=== PATIENT | male | born 1970 | race Caucasian/White ===

== ENCOUNTER 2020-08-16 11:17 | Inpatient (IN) | payer MEDICARE, MEDICAID, SELFPAY ==
[2020-08-16] VITALS (10 sets, daily range): BP systolic 112–170; BP diastolic 72–96; PULSE 60–78; RESP 12–24; TEMP 36.4–37.1; O2SAT 96–100; BMI 38.0; BMI 38.1; BMI 40.4; BMI 39.2
--- NOTE | ~2020-08-16 | XR_ITS ---
EXAMINATION: XR CHEST CLINICAL INFORMATION: Chest pain COMPARISON: None TECHNIQUE: Frontal view of the chest was obtained. FINDINGS: The lungs are well-expanded and clear of acute process. The heart size and pulmonary vascularity is normal. There is a solitary pacer electrodes in the right ventricle. No gross bony abnormality seen. XR/XR chest 1V IMPRESSION: Unremarkable chest exam.
--- NOTE | 2020-08-16 11:18 | ECG_ITS ---
Test Reason : CHEST PAIN Blood Pressure : / mmHG Vent. Rate : 064 BPM Atrial Rate : 064 BPM P-R Int : 188 ms QRS Dur : 084 ms QT Int : 344 ms P-R-T Axes : 012 057 122 degrees QTc Int : 354 ms Normal sinus rhythm Low voltage QRS Septal infarct , age undetermined Lateral infarct , age undetermined Abnormal ECG No previous ECGs available Referred By: Sang Burgess Electronically Signed By:MELISSA MARSHALL MD
--- NOTE | 2020-08-16 11:29 | ED.CHESTPAIN ---
HPI - Chest Pain General Chief Complaint: Chest Pain <Sang Burgess NP - Last Filed: 08/16/20 17:48> Stated Complaint: chest pain <Sang Burgess NP - Last Filed: 08/16/20 17:48> Time Seen by Provider: 08/16/20 11:29 <Sang Burgess NP - Last Filed: 08/16/20 17:48> Source: patient <Sang Burgess NP - Last Filed: 08/16/20 17:48> Mode of arrival: ambulatory <Sang Burgess NP - Last Filed: 08/16/20 17:48> Limitations: language barrier (Primarily Romanian-speaking) <Sang Burgess NP - Last Filed: 08/16/20 17:48> History of Present Illness HPI narrative: States he woke 730 this morning with chest pain <Sang Burgess NP - Last Filed: 08/16/20 17:48> MD complaint: chest pain <Sang Burgess NP - Last Filed: 08/16/20 17:48> Pertinent past history: coronary artery disease, 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 <Sang Burgess NP - Last Filed: 08/16/20 17:48> Onset (ago): hour(s) <Sang Burgess NP - Last Filed: 08/16/20 17:48> Timing of current episode: constant <Sang Burgess NP - Last Filed: 08/16/20 17:48> Prior episodes: Yes <Sang Burgess NP - Last Filed: 08/16/20 17:48> Onset: during rest <Sang Burgess NP - Last Filed: 08/16/20 17:48> Pain location: substernal <Sang Burgess NP - Last Filed: 08/16/20 17:48> Pain radiation: none <Sang Burgess NP - Last Filed: 08/16/20 17:48> Severity: moderate <Sang Burgess NP - Last Filed: 08/16/20 17:48> Quality: tightness <Sang Burgess NP - Last Filed: 08/16/20 17:48> Relieving factors: nothing <Sang Burgess NP - Last Filed: 08/16/20 17:48> Exacerbating factors: nothing <Sang Burgess NP - Last Filed: 08/16/20 17:48> Treatment prior to arrival: none <Sang Burgess NP - Last Filed: 08/16/20 17:48> Risk Factors Coronary artery disease risk factors: diabetes, hyperlipidemia and hypertension <Sang Burgess NP - Last Filed: 08/16/20 17:48> Related Data Home Medications: Home Medications Medication Instructions Recorded Confirmed aspirin 81 mg PO DAILY 08/16/20 08/16/20 buspirone 15 mg PO BID 08/16/20 08/16/20 carvedilol 25 mg PO BID 08/16/20 08/16/20 cyanocobalamin (vitamin B-12) 1,000 mcg SUBLINGUAL DAILY 08/16/20 08/16/20 digoxin 125 mcg PO DAILY 08/16/20 08/16/20 ergocalciferol (vitamin D2) 1,250 mcg PO MO@0900 08/16/20 08/16/20 ezetimibe 10 mg PO DAILY 08/16/20 08/16/20 furosemide 60 mg PO DAILY 08/16/20 08/16/20 pantoprazole 40 mg PO DAILY 08/16/20 08/16/20 rosuvastatin 40 mg PO DAILY 08/16/20 08/16/20 sacubitril-valsartan [Entresto] 1 tab PO BID 08/16/20 08/16/20 sertraline 50 mg PO DAILY 08/16/20 08/16/20 spironolactone 12.5 mg PO DAILY 08/16/20 08/16/20 zolpidem 10 mg PO BEDTIME PRN 08/16/20 08/16/20 <Sang Burgess NP - Last Filed: 08/16/20 17:48> Allergies/Adverse Reactions: Allergies Allergy/AdvReac Type Severity Reaction Status Date / Time hydromorphone [From DILAUDID] Allergy Mild PASSES OUT Verified 08/16/20 11:19 morphine [MORPHINE] Allergy Mild PASSES OUT Verified 08/16/20 11:19 <Sang Burgess NP - Last Filed: 08/16/20 17:48> Review of Systems Review of Systems: Constitutional: No Weight loss, No Fever, No Chills, No Night Sweats, No Fatigue, No Malaise ENT/Mouth: No Hearing loss, No Ear Pain, No Nasal Congestion, No Sinus Pain, No Hoarseness, No sore throat, No Rhinorrhea, No Swallowing Difficulty Eyes: No Eye Pain, No Swelling, No Redness, No Foreign Body, No Discharge, No Vision Changes Cardiovascular: + Chest Pain, No SOB, No Dyspnea on Exertion, No Orthopnea, No Edema, No Palpitations Respiratory: No Cough, No Sputum, No Wheezing, No Smoke Exposure, No Dyspnea Gastrointestinal: No Nausea, No Vomiting, No Diarrhea, No Constipation, No abdominal Pain, No Hematochezia, No Melena Genitourinary: no irregular bleeding, No Dysuria, No Urinary Frequency, No Hematuria, No Urinary Incontinence, No Urgency, No Flank Pain, No Urinary Flow Changes, No Hesitancy Musculoskeletal: No joint pain, No Myalgias, No Joint Swelling Skin: No Skin Lesions, No rash Neuro: No Weakness, No Numbness, No Paresthesias, No Loss of Consciousness, No Dizziness, No Headache Psych: No Anxiety/Panic, No Depression, No SI/HI/AH/VH, No Social Issues Heme/Lymph: No Bruising, No Bleeding,No Lymphadenopathy Endocrine: No Polyuria, No Polydipsia, No Temperature Intolerance <Sang Burgess NP - Last Filed: 08/16/20 17:48> Yes all other systems are reviewed and are negative <Sang Burgess NP - Last Filed: 08/16/20 17:48> [facility] Past Medical History [facility] Narrative: Records below from [facility] in-hospital Dr. Nick 1. Ischemic cardiomyopathy onset in the 30s, with ECC LVH EF 20% with pulmonary hypertension, with persistent chronic chest pain with history of numerous ER visits and stents, AICD 09, TP ox list with intrope 2016 now off list as class 1 fntn, no recent CHF decomp and BMI is too high. 2. MDD/anxiety with somatic features ER visits for chronic persistent chest pain has improved coping w aunt as occupational therapy assist 3. IGT/Dm2... 4. Chronic CPK elevation unclear etiology, not clearly related to dosing of lipid med neg rheum/ neuro workup 5. Chronic LBP and other symptoms it causes ED visits-suffocating sensation, dizziness 6. Chronic on off abdominal pain/nausea/and incidental abnormal LFT off... 7. CKD stage 3 This above documentation is in the chart please refer to full note <Sang Burgess NP - Last Filed: 08/16/20 17:48> Medical History: Medical History (Updated 08/16/20 @ 17:47 by Sang Burgess NP) Diabetes High cholesterol HTN (hypertension) <Sang Burgess NP - Last Filed: 08/16/20 17:48> Surgical History: Surgical History (Updated 08/16/20 @ 11:24 by Jennifer Magallon) Stented coronary artery <Sang Burgess NP - Last Filed: 08/16/20 17:48> Social History Social History: Social History Alcohol intake: never Smoking Status: Never smoker Use of substances other than those prescribed or required for medical reasons: No Advance Directives: No Advance Directives Information Provided: No <Sang Burgess NP - Last Filed: 08/16/20 17:48> Physical Exam Vital Signs: Vital Signs: Last Vital Signs Temp 97.8 F 08/16/20 16:52 Pulse 77 08/16/20 16:52 Resp 24 H 08/16/20 16:52 BP 164/96 H 08/16/20 16:52 Pulse Ox 100 08/16/20 16:52 Body Mass Index 40.4 Reviewed <Sang Burgess NP - Last Filed: 08/16/20 17:48> Vital Signs: Last Vital Signs Temp 97.8 F 08/16/20 16:52 Pulse 77 08/16/20 16:52 Resp 24 H 08/16/20 16:52 BP 164/96 H 08/16/20 16:52 Pulse Ox 100 08/16/20 16:52 Body Mass Index 40.4 <Sylvester Poole MD - Last Filed: 08/16/20 15:53> Const: General: cooperative and healthy appearing; No acute distress or intoxicated appearing <Sang Burgess NP - Last Filed: 08/16/20 17:48> Nutritional Appearance: average body habitus <Sang Burgess NP - Last Filed: 08/16/20 17:48> Orientation/consciousness: patient oriented x3 <Sang Burgess NP - Last Filed: 08/16/20 17:48> HENMT: Head: Yes normal to inspection <Sang Burgess NP - Last Filed: 08/16/20 17:48> Ears: hearing grossly normal bilaterally <[facility] Burgess, - Last Filed: 08/16/20 17:48> Eyes: General: appearance normal, both eyes and all related structures <[facility] Aditya, - Last Filed: 08/16/20 17:48> Visual Ahuja: normal visual ahuja by confrontation <[facility] Burgess - Last Filed: 08/16/20 17:48> Neck: Neck: Yes normal visual inspection, No positive Brudzinski's sign, No positive Kernig's sign and No tender <[facility], - Last Filed: 08/16/20 17:48> Thyroid: Thyroid normal <[facility], - Last Filed: 08/16/20 17:48> Chest: Chest palpation & inspection: normal inspection of the chest <[facility] Burgess, - Last Filed: 08/16/20 17:48> Resp: Effort & Inspection: normal respiratory effort <[facility] Burgess - Last Filed: 08/16/20 17:48> Auscultation: clear to auscultation bilaterally <[facility], - Last Filed: 08/16/20 17:48> Cardio: Jugular venous distension: no JVD <[facility] Burgess - Last Filed: 08/16/20 17:48> Rhythm: regular rhythm <[facility] Burgess - Last Filed: 08/16/20 17:48> Heart sounds: S1 normal heart sound present and S2 normal heart sound present <[facility] Burgess - Last Filed: 08/16/20 17:48> GI: Inspection: Yes normal to inspection <[facility], [employer]ING AND BEADING MACHINE OPERATOR - Last Filed: 08/16/20 17:48> Palpation (GI): Soft to palpation <[facility], - Last Filed: 08/16/20 17:48> Percussion: Yes normal to percussion <[facility], TURNING AND BEADING MACHINE OPERATOR - Last Filed: 08/16/20 17:48> Auscultation: normal bowel sounds <[facility] - Last Filed: 08/16/20 17:48> : General: Yes no CVA tenderness <Sang Burgess NP - Last Filed: 08/16/20 17:48> Back/Spine/Pelvis: Back: no CVA tenderness <Sang Burgess NP - Last Filed: 08/16/20 17:48> Skin: General skin exam: no rashes or lesions noted <Sang Burgess NP - Last Filed: 08/16/20 17:48> Neuro: General: patient oriented x3 <Sang Burgess ORTIZ - Last Filed: 08/16/20 17:48> Extrem: General: Yes normal to inspection <Sang Burgess NP - Last Filed: 08/16/20 17:48> Course Course Course Narrative: In review pleasant 50-year-old primarily Romanian-speaking male who reports roughly 5+ hours ago waking up at 07:30 with substernal chest pain that is sharp and achy he has states has had similar episodes in the past and admits to extensive cardiac history has had multiple MIs as initially in 2007 he is from the [facility] at that time he had mild dizziness and at that time he required multiple stents and subsequently has had 2 additional MIs most recently in 2016 requiring additional stents in addition to this he reports he has a imbedded defibrillator secondary to proximal ventricular tachycardia, history of hypercholesteremia, non insulin-dependent diabetes and currently not on any antidiabetic regiment, obesity and anxiety/depression. Most of his history was gathered from him as well as his significant other at bedside and he has phone chart access to his patient portal [facility] which I reviewed with him but there are no physician notes. Consented to requesting records. Subsequently has some difficulty receiving records but was able to receive a single note from cardiology Dr. Ncik in the meantime directly after my evaluation he reported that his pain was essentially almost resolved he was given a GI cocktail and he has been pain free. His initial troponin was 52 and his initial EKG showed findings consistent with prior myocardial injury but no acute ST segment changes subsequently had a 3 hour troponin done that showed positive delta at 459 and EKG showed no significant changes. In the meantime patient has been pain-free the entire time case was discussed with Cardiology and recommendation for admission here and start on anticoagulation therapy and will follow. Additionally labs showed CKD today his creatinine was 1.55/BUN 21 and in June his creatinine was 1.49 and BUN of 21 I had access to this information through his patient portal on his cellphone. <Sang Burgess NP - Last Filed: 08/16/20 17:48> I have discussed the case and management with the BRITTANY <Sylvester Poole MD - Last Filed: 08/16/20 15:53> Reevaluation(s) Reevaluation #1: 42-year-old male with apparently extensive cardiac history including multiple MIs in the past status post stent, CAD, diabetes, obesity, prox overtook her tachycardia has a defibrillator in place presenting with 5-1/2 hours of substernal chest pain. States is feeling like is almost gone EKG upon arrival with no acute ST segment elevation. Plan for labs, chest x-ray and close monitoring given his history. He is sinus rhythm at this time on bedside monitor. Patient consented for records from his doctor in [place]. <Sang Burgess NP - Last Filed: 08/16/20 17:48> Reevaluation #2: His initial troponin is 53 labs show elevated kidney function unsure if this is driven by the kidney function, chronic, early elevation at this time he is pain-free and will plan on repeating a 3 hour level to ensure that there is no delta and repeat EKG. Findings and plan reviewed with the patient with consultants intern. <Sang Burgess NP - Last Filed: 08/16/20 17:48> Consultations Consultation #1: Case discussed with attending <Sang Burgess NP - Last Filed: 08/16/20 17:48> Consultation #2: Case discussed with cardiology Dr. Denise recommendation for no transfer, plan for admit to the facility and further workup. <Sang Burgess NP - Last Filed: 08/16/20 17:48> Consultation #3: Case discussed with hospitalist for admission <Sang Burgess NP - Last Filed: 08/16/20 17:48> MDM - Chest Pain Medical Records Data Attestation: I reviewed the patient's medical records. <Sang Burgess NP - Last Filed: 08/16/20 17:48> Medical records narrative: Prior ED visit reviewed from 03/26/2018 who is here for upper respiratory symptoms. <Sang Burgess NP - Last Filed: 08/16/20 17:48> Lab Data Attestation: I reviewed the patient's lab results. <Sang Burgess NP - Last Filed: 08/16/20 17:48> Result diagrams: : 08/16/20 17:08 08/16/20 11:59 <Sang Burgess NP - Last Filed: 08/16/20 17:48> Labs: Lab Results 08/16/20 08/16/20 08/16/20 Range/Units 11:59 11:59 11:59 WBC 9.8 (4.8-10.8) X10*3/uL RBC 5.22 (4.60-5.80) X10*6/uL Hgb 14.9 (14.0-18.0) g/dl Hct 46.5 (42-52) % MCV 89.1 (80-98) fL MCH 28.5 (27.0-33.0) pg MCHC 32.0 (31.0-36.0) g/dl RDW 13.3 (11.0-16.0) % Plt Count 221 (160-400) X10*3/uL MPV 11.3 (9.4-12.4) fL Immature Gran % (Auto) 0.2 (0.0-0.4) % Neut % (Auto) 73.1 H (45-73) % Lymph % (Auto) 18.7 L (20-40) % Stephens % (Auto) 7.4 (2-11) % Eos % (Auto) 0.3 (0-4) % Baso % (Auto) 0.3 (0-2) % Lymph # (Auto) 1.8 (1.2-4.9) X10*3/uL Stephens # (Auto) 0.7 (0.1-1.2) X10*3/uL Eos # (Auto) 0.0 (0.0-0.4) X10*3/uL Baso # (Auto) 0.0 (0.0-0.2) X10*3/uL Abs Immat Gran (auto) 0.02 (0.00-0.03) X10*3/uL Absolute Neuts (auto) 7.2 (2.0-8.3) X10*3/uL Absolute Nucleated RBC 0.000 (0.0-0.012) X10*3/uL Nucleated RBC % (auto) 0.0 (0.0-0.2) /100WBC PT 12.9 (10.8-13.0) SEC INR 1.1 (0.9-1.1) APTT 31.2 (24.1-38.0) SEC PTT (Heparin Protocol) (53-77.9) SEC D-Dimer 217 NG/ML Sodium 139 (135-145) mmol/L Potassium 5.0 (3.3-5.1) mmol/L Chloride 103 (96-108) mmol/L Carbon Dioxide 29 (22-29) mmol/L Anion Gap 12 (12-20) BUN 21 H (9-16) mg/dL Creatinine 1.55 H (0.5-1.4) mg/dL Estim Creat Clear Calc 71.3 Estimated GFR 48 Random Glucose 125 H (60-115) mg/dL Calcium 9.7 (8.4-10.2) mg/dL Total Bilirubin 1.2 H (0.0-1.0) mg/dL AST 27 (5-37) U/L ALT 35 (0-40) U/L Alkaline Phosphatase 74 (39-117) U/L Troponin I High Sens (<3.5-35.0) ng/L B-Natriuretic Peptide (<100) pg/mL Total Protein 8.1 H (6.5-8.0) g/dL Albumin 4.3 (3.5-5.0) g/dL Urine Color Urine Appearance Urine pH (5.0-8.0) Ur Specific [place] (1.005-1.025) Urine Protein (NEG-TRACE) MG/DL Urine Glucose (UA) (NEG) MG/DL Urine Ketones (NEG) MG/DL Urine Blood (NEG) Urine Nitrite (NEG) Ur Leukocyte Esterase (NEG) Urine RBC (0) /HPF Urine WBC (0-4) /HPF Ur Squamous Epith Cells /LPF Urine Bacteria /LPF Urine Opiates Screen (Not Detect) Ur Barbiturates Screen (Not Detect) Ur Phencyclidine Scrn (Not Detect) Ur Amphetamines Screen (Not Detect) U Benzodiazepines Scrn (Not Detect) Urine Cocaine Screen (Not Detect) U Marijuana (THC) Screen (Not Detect) COVID-19 ([facility]) (Negative) COVID-19 Clin Com 08/16/20 08/16/20 08/16/20 Range/Units 11:59 11:59 11:59 WBC (4.8-10.8) X10*3/uL RBC (4.60-5.80) X10*6/uL Hgb (14.0-18.0) g/dl Hct (42-52) % MCV (80-98) fL MCH (27.0-33.0) pg MCHC (31.0-36.0) g/dl RDW (11.0-16.0) % Plt Count (160-400) X10*3/uL MPV (9.4-12.4) fL Immature Gran % (Auto) (0.0-0.4) % Neut % (Auto) (45-73) % Lymph % (Auto) (20-40) % Stephens % (Auto) (2-11) % Eos % (Auto) (0-4) % Baso % (Auto) (0-2) % Lymph # (Auto) (1.2-4.9) X10*3/uL Stephens # (Auto) (0.1-1.2) X10*3/uL Eos # (Auto) (0.0-0.4) X10*3/uL Baso # (Auto) (0.0-0.2) X10*3/uL Abs Immat Gran (auto) (0.00-0.03) X10*3/uL Absolute Neuts (auto) (2.0-8.3) X10*3/uL Absolute Nucleated RBC (0.0-0.012) X10*3/uL Nucleated RBC % (auto) (0.0-0.2) /100WBC PT (10.8-13.0) SEC INR (0.9-1.1) APTT (24.1-38.0) SEC PTT (Heparin Protocol) (53-77.9) SEC D-Dimer NG/ML Sodium (135-145) mmol/L Potassium (3.3-5.1) mmol/L Chloride (96-108) mmol/L Carbon Dioxide (22-29) mmol/L Anion Gap (12-20) BUN (9-16) mg/dL Creatinine (0.5-1.4) mg/dL Estim Creat Clear Calc Estimated GFR Random Glucose (60-115) mg/dL Calcium (8.4-10.2) mg/dL Total Bilirubin (0.0-1.0) mg/dL AST (5-37) U/L ALT (0-40) U/L Alkaline Phosphatase (39-117) U/L Troponin I High Sens 53.2 H (<3.5-35.0) ng/L B-Natriuretic Peptide 87 (<100) pg/mL Total Protein (6.5-8.0) g/dL Albumin (3.5-5.0) g/dL Urine Color Urine Appearance Urine pH (5.0-8.0) Ur Specific [place] (1.005-1.025) Urine Protein (NEG-TRACE) MG/DL Urine Glucose (UA) (NEG) MG/DL Urine Ketones (NEG) MG/DL Urine Blood (NEG) Urine Nitrite (NEG) Ur Leukocyte Esterase (NEG) Urine RBC (0) /HPF Urine WBC (0-4) /HPF Ur Squamous Epith Cells /LPF Urine Bacteria /LPF Urine Opiates Screen (Not Detect) Ur Barbiturates Screen (Not Detect) Ur Phencyclidine Scrn (Not Detect) Ur Amphetamines Screen (Not Detect) U Benzodiazepines Scrn (Not Detect) Urine Cocaine Screen (Not Detect) U Marijuana (THC) Screen (Not Detect) COVID-19 ([facility]) Negative (Negative) COVID-19 Clin Com See Note 08/16/20 08/16/20 08/16/20 Range/Units 13:10 13:10 14:56 WBC (4.8-10.8) X10*3/uL RBC (4.60-5.80) X10*6/uL Hgb (14.0-18.0) g/dl Hct (42-52) % MCV (80-98) fL MCH (27.0-33.0) pg MCHC (31.0-36.0) g/dl RDW (11.0-16.0) % Plt Count (160-400) X10*3/uL MPV (9.4-12.4) fL Immature Gran % (Auto) (0.0-0.4) % Neut % (Auto) (45-73) % Lymph % (Auto) (20-40) % Stephens % (Auto) (2-11) % Eos % (Auto) (0-4) % Baso % (Auto) (0-2) % Lymph # (Auto) (1.2-4.9) X10*3/uL Stephens # (Auto) (0.1-1.2) X10*3/uL Eos # (Auto) (0.0-0.4) X10*3/uL Baso # (Auto) (0.0-0.2) X10*3/uL Abs Immat Gran (auto) (0.00-0.03) X10*3/uL Absolute Neuts (auto) (2.0-8.3) X10*3/uL Absolute Nucleated RBC (0.0-0.012) X10*3/uL Nucleated RBC % (auto) (0.0-0.2) /100WBC PT (10.8-13.0) SEC INR (0.9-1.1) APTT (24.1-38.0) SEC PTT (Heparin Protocol) (53-77.9) SEC D-Dimer NG/ML Sodium (135-145) mmol/L Potassium (3.3-5.1) mmol/L Chloride (96-108) mmol/L Carbon Dioxide (22-29) mmol/L Anion Gap (12-20) BUN (9-16) mg/dL Creatinine (0.5-1.4) mg/dL Estim Creat Clear Calc Estimated GFR Random Glucose (60-115) mg/dL Calcium (8.4-10.2) mg/dL Total Bilirubin (0.0-1.0) mg/dL AST (5-37) U/L ALT (0-40) U/L Alkaline Phosphatase (39-117) U/L Troponin I High Sens 459.1 H D (<3.5-35.0) ng/L B-Natriuretic Peptide (<100) pg/mL Total Protein (6.5-8.0) g/dL Albumin (3.5-5.0) g/dL Urine Color YELLOW Urine Appearance CLEAR Urine pH 7.0 (5.0-8.0) Ur Specific [place] 1.020 (1.005-1.025) Urine Protein NEG (NEG-TRACE) MG/DL Urine Glucose (UA) NEG (NEG) MG/DL Urine Ketones NEG (NEG) MG/DL Urine Blood TRACE (NEG) Urine Nitrite NEG (NEG) Ur Leukocyte Esterase NEG (NEG) Urine RBC 1-4 (0) /HPF Urine WBC 0 (0-4) /HPF Ur Squamous Epith Cells NONE /LPF Urine Bacteria NONE /LPF Urine Opiates Screen Not Detected (Not Detect) Ur Barbiturates Screen Not Detected (Not Detect) Ur Phencyclidine Scrn Not Detected (Not Detect) Ur Amphetamines Screen Not Detected (Not Detect) U Benzodiazepines Scrn Not Detected (Not Detect) Urine Cocaine Screen Not Detected (Not Detect) U Marijuana (THC) Screen Not Detected (Not Detect) COVID-19 ([facility]) (Negative) COVID-19 Clin Com 08/16/20 08/16/20 08/16/20 Range/Units 17:08 17:08 17:08 WBC 9.9 (4.8-10.8) X10*3/uL RBC 5.39 (4.60-5.80) X10*6/uL Hgb 15.3 (14.0-18.0) g/dl Hct 47.7 (42-52) % MCV 88.5 (80-98) fL MCH 28.4 (27.0-33.0) pg MCHC 32.1 (31.0-36.0) g/dl RDW 13.3 (11.0-16.0) % Plt Count 216 (160-400) X10*3/uL MPV 11.1 (9.4-12.4) fL Immature Gran % (Auto) (0.0-0.4) % Neut % (Auto) (45-73) % Lymph % (Auto) (20-40) % Stephens % (Auto) (2-11) % Eos % (Auto) (0-4) % Baso % (Auto) (0-2) % Lymph # (Auto) (1.2-4.9) X10*3/uL Stephens # (Auto) (0.1-1.2) X10*3/uL Eos # (Auto) (0.0-0.4) X10*3/uL Baso # (Auto) (0.0-0.2) X10*3/uL Abs Immat Gran (auto) (0.00-0.03) X10*3/uL Absolute Neuts (auto) (2.0-8.3) X10*3/uL Absolute Nucleated RBC 0.000 (0.0-0.012) X10*3/uL Nucleated RBC % (auto) 0.0 (0.0-0.2) /100WBC PT 13.6 H (10.8-13.0) SEC INR 1.1 (0.9-1.1) APTT (24.1-38.0) SEC PTT (Heparin Protocol) 144.5 H* (53-77.9) SEC D-Dimer NG/ML Sodium (135-145) mmol/L Potassium (3.3-5.1) mmol/L Chloride (96-108) mmol/L Carbon Dioxide (22-29) mmol/L Anion Gap (12-20) BUN (9-16) mg/dL Creatinine (0.5-1.4) mg/dL Estim Creat Clear Calc Estimated GFR Random Glucose (60-115) mg/dL Calcium (8.4-10.2) mg/dL Total Bilirubin (0.0-1.0) mg/dL AST (5-37) U/L ALT (0-40) U/L Alkaline Phosphatase (39-117) U/L Troponin I High Sens 786.5 H D (<3.5-35.0) ng/L B-Natriuretic Peptide (<100) pg/mL Total Protein (6.5-8.0) g/dL Albumin (3.5-5.0) g/dL Urine Color Urine Appearance Urine pH (5.0-8.0) Ur Specific [place] (1.005-1.025) Urine Protein (NEG-TRACE) MG/DL Urine Glucose (UA) (NEG) MG/DL Urine Ketones (NEG) MG/DL Urine Blood (NEG) Urine Nitrite (NEG) Ur Leukocyte Esterase (NEG) Urine RBC (0) /HPF Urine WBC (0-4) /HPF Ur Squamous Epith Cells /LPF Urine Bacteria /LPF Urine Opiates Screen (Not Detect) Ur Barbiturates Screen (Not Detect) Ur Phencyclidine Scrn (Not Detect) Ur Amphetamines Screen (Not Detect) U Benzodiazepines Scrn (Not Detect) Urine Cocaine Screen (Not Detect) U Marijuana (THC) Screen (Not Detect) COVID-19 ([facility]) (Negative) COVID-19 Clin Com <Sang Burgess NP - Last Filed: 08/16/20 17:48> Lab Results 08/16/20 08/16/20 08/16/20 Range/Units 11:59 11:59 11:59 WBC 9.8 (4.8-10.8) X10*3/uL RBC 5.22 (4.60-5.80) X10*6/uL Hgb 14.9 (14.0-18.0) g/dl Hct 46.5 (42-52) % MCV 89.1 (80-98) fL MCH 28.5 (27.0-33.0) pg MCHC 32.0 (31.0-36.0) g/dl RDW 13.3 (11.0-16.0) % Plt Count 221 (160-400) X10*3/uL MPV 11.3 (9.4-12.4) fL Immature Gran % (Auto) 0.2 (0.0-0.4) % Neut % (Auto) 73.1 H (45-73) % Lymph % (Auto) 18.7 L (20-40) % Stephens % (Auto) 7.4 (2-11) % Eos % (Auto) 0.3 (0-4) % Baso % (Auto) 0.3 (0-2) % Lymph # (Auto) 1.8 (1.2-4.9) X10*3/uL Stephens # (Auto) 0.7 (0.1-1.2) X10*3/uL Eos # (Auto) 0.0 (0.0-0.4) X10*3/uL Baso # (Auto) 0.0 (0.0-0.2) X10*3/uL Abs Immat Gran (auto) 0.02 (0.00-0.03) X10*3/uL Absolute Neuts (auto) 7.2 (2.0-8.3) X10*3/uL Absolute Nucleated RBC 0.000 (0.0-0.012) X10*3/uL Nucleated RBC % (auto) 0.0 (0.0-0.2) /100WBC PT 12.9 (10.8-13.0) SEC INR 1.1 (0.9-1.1) APTT 31.2 (24.1-38.0) SEC PTT (Heparin Protocol) (53-77.9) SEC D-Dimer 217 NG/ML Sodium 139 (135-145) mmol/L Potassium 5.0 (3.3-5.1) mmol/L Chloride 103 (96-108) mmol/L Carbon Dioxide 29 (22-29) mmol/L Anion Gap 12 (12-20) BUN 21 H (9-16) mg/dL Creatinine 1.55 H (0.5-1.4) mg/dL Estim Creat Clear Calc 71.3 Estimated GFR 48 Random Glucose 125 H (60-115) mg/dL Calcium 9.7 (8.4-10.2) mg/dL Total Bilirubin 1.2 H (0.0-1.0) mg/dL AST 27 (5-37) U/L ALT 35 (0-40) U/L Alkaline Phosphatase 74 (39-117) U/L Troponin I High Sens (<3.5-35.0) ng/L B-Natriuretic Peptide (<100) pg/mL Total Protein 8.1 H (6.5-8.0) g/dL Albumin 4.3 (3.5-5.0) g/dL Urine Color Urine Appearance Urine pH (5.0-8.0) Ur Specific [place] (1.005-1.025) Urine Protein (NEG-TRACE) MG/DL Urine Glucose (UA) (NEG) MG/DL Urine Ketones (NEG) MG/DL Urine Blood (NEG) Urine Nitrite (NEG) Ur Leukocyte Esterase (NEG) Urine RBC (0) /HPF Urine WBC (0-4) /HPF Ur Squamous Epith Cells /LPF Urine Bacteria /LPF Urine Opiates Screen (Not Detect) Ur Barbiturates Screen (Not Detect) Ur Phencyclidine Scrn (Not Detect) Ur Amphetamines Screen (Not Detect) U Benzodiazepines Scrn (Not Detect) Urine Cocaine Screen (Not Detect) U Marijuana (THC) Screen (Not Detect) COVID-19 ([facility]) (Negative) COVID-19 Clin Com 03/16/21 03/16/21 03/16/21 Range/Units 11:59 11:59 11:59 WBC (4.8-10.8) X10*3/uL RBC (4.60-5.80) X10*6/uL Hgb (14.0-18.0) g/dl Hct (42-52) % MCV (80-98) fL MCH (27.0-33.0) pg MCHC (31.0-36.0) g/dl RDW (11.0-16.0) % Plt Count (160-400) X10*3/uL MPV (9.4-12.4) fL Immature Gran % (Auto) (0.0-0.4) % Neut % (Auto) (45-73) % Lymph % (Auto) (20-40) % Stephens % (Auto) (2-11) % Eos % (Auto) (0-4) % Baso % (Auto) (0-2) % Lymph # (Auto) (1.2-4.9) X10*3/uL Stephens # (Auto) (0.1-1.2) X10*3/uL Eos # (Auto) (0.0-0.4) X10*3/uL Baso # (Auto) (0.0-0.2) X10*3/uL Abs Immat Gran (auto) (0.00-0.03) X10*3/uL Absolute Neuts (auto) (2.0-8.3) X10*3/uL Absolute Nucleated RBC (0.0-0.012) X10*3/uL Nucleated RBC % (auto) (0.0-0.2) /100WBC PT (10.8-13.0) SEC INR (0.9-1.1) APTT (24.1-38.0) SEC PTT (Heparin Protocol) (53-77.9) SEC D-Dimer NG/ML Sodium (135-145) mmol/L Potassium (3.3-5.1) mmol/L Chloride (96-108) mmol/L Carbon Dioxide (22-29) mmol/L Anion Gap (12-20) BUN (9-16) mg/dL Creatinine (0.5-1.4) mg/dL Estim Creat Clear Calc Estimated GFR Random Glucose (60-115) mg/dL Calcium (8.4-10.2) mg/dL Total Bilirubin (0.0-1.0) mg/dL AST (5-37) U/L ALT (0-40) U/L Alkaline Phosphatase (39-117) U/L Troponin I High Sens 53.2 H (<3.5-35.0) ng/L B-Natriuretic Peptide 87 (<100) pg/mL Total Protein (6.5-8.0) g/dL Albumin (3.5-5.0) g/dL Urine Color Urine Appearance Urine pH (5.0-8.0) Ur Specific [place] (1.005-1.025) Urine Protein (NEG-TRACE) MG/DL Urine Glucose (UA) (NEG) MG/DL Urine Ketones (NEG) MG/DL Urine Blood (NEG) Urine Nitrite (NEG) Ur Leukocyte Esterase (NEG) Urine RBC (0) /HPF Urine WBC (0-4) /HPF Ur Squamous Epith Cells /LPF Urine Bacteria /LPF Urine Opiates Screen (Not Detect) Ur Barbiturates Screen (Not Detect) Ur Phencyclidine Scrn (Not Detect) Ur Amphetamines Screen (Not Detect) U Benzodiazepines Scrn (Not Detect) Urine Cocaine Screen (Not Detect) U Marijuana (THC) Screen (Not Detect) COVID-19 ([facility]) Negative (Negative) COVID-19 Clin Com See Note 08/16/20 08/16/20 08/16/20 Range/Units 13:10 13:10 14:56 WBC (4.8-10.8) X10*3/uL RBC (4.60-5.80) X10*6/uL Hgb (14.0-18.0) g/dl Hct (42-52) % MCV (80-98) fL MCH (27.0-33.0) pg MCHC (31.0-36.0) g/dl RDW (11.0-16.0) % Plt Count (160-400) X10*3/uL MPV (9.4-12.4) fL Immature Gran % (Auto) (0.0-0.4) % Neut % (Auto) (45-73) % Lymph % (Auto) (20-40) % Stephens % (Auto) (2-11) % Eos % (Auto) (0-4) % Baso % (Auto) (0-2) % Lymph # (Auto) (1.2-4.9) X10*3/uL Stephens # (Auto) (0.1-1.2) X10*3/uL Eos # (Auto) (0.0-0.4) X10*3/uL Baso # (Auto) (0.0-0.2) X10*3/uL Abs Immat Gran (auto) (0.00-0.03) X10*3/uL Absolute Neuts (auto) (2.0-8.3) X10*3/uL Absolute Nucleated RBC (0.0-0.012) X10*3/uL Nucleated RBC % (auto) (0.0-0.2) /100WBC PT (10.8-13.0) SEC INR (0.9-1.1) APTT (24.1-38.0) SEC PTT (Heparin Protocol) (53-77.9) SEC D-Dimer NG/ML Sodium (135-145) mmol/L Potassium (3.3-5.1) mmol/L Chloride (96-108) mmol/L Carbon Dioxide (22-29) mmol/L Anion Gap (12-20) BUN (9-16) mg/dL Creatinine (0.5-1.4) mg/dL Estim Creat Clear Calc Estimated GFR Random Glucose (60-115) mg/dL Calcium (8.4-10.2) mg/dL Total Bilirubin (0.0-1.0) mg/dL AST (5-37) U/L ALT (0-40) U/L Alkaline Phosphatase (39-117) U/L Troponin I High Sens 459.1 H D (<3.5-35.0) ng/L B-Natriuretic Peptide (<100) pg/mL Total Protein (6.5-8.0) g/dL Albumin (3.5-5.0) g/dL Urine Color YELLOW Urine Appearance CLEAR Urine pH 7.0 (5.0-8.0) Ur Specific [place] 1.020 (1.005-1.025) Urine Protein NEG (NEG-TRACE) MG/DL Urine Glucose (UA) NEG (NEG) MG/DL Urine Ketones NEG (NEG) MG/DL Urine Blood TRACE (NEG) Urine Nitrite NEG (NEG) Ur Leukocyte Esterase NEG (NEG) Urine RBC 1-4 (0) /HPF Urine WBC 0 (0-4) /HPF Ur Squamous Epith Cells NONE /LPF Urine Bacteria NONE /LPF Urine Opiates Screen Not Detected (Not Detect) Ur Barbiturates Screen Not Detected (Not Detect) Ur Phencyclidine Scrn Not Detected (Not Detect) Ur Amphetamines Screen Not Detected (Not Detect) U Benzodiazepines Scrn Not Detected (Not Detect) Urine Cocaine Screen Not Detected (Not Detect) U Marijuana (THC) Screen Not Detected (Not Detect) COVID-19 ([facility]) (Negative) COVID-19 Clin Com 08/16/20 08/16/20 08/16/20 Range/Units 17:08 17:08 17:08 WBC 9.9 (4.8-10.8) X10*3/uL RBC 5.39 (4.60-5.80) X10*6/uL Hgb 15.3 (14.0-18.0) g/dl Hct 47.7 (42-52) % MCV 88.5 (80-98) fL MCH 28.4 (27.0-33.0) pg MCHC 32.1 (31.0-36.0) g/dl RDW 13.3 (11.0-16.0) % Plt Count 216 (160-400) X10*3/uL MPV 11.1 (9.4-12.4) fL Immature Gran % (Auto) (0.0-0.4) % Neut % (Auto) (45-73) % Lymph % (Auto) (20-40) % Stephens % (Auto) (2-11) % Eos % (Auto) (0-4) % Baso % (Auto) (0-2) % Lymph # (Auto) (1.2-4.9) X10*3/uL Stephens # (Auto) (0.1-1.2) X10*3/uL Eos # (Auto) (0.0-0.4) X10*3/uL Baso # (Auto) (0.0-0.2) X10*3/uL Abs Immat Gran (auto) (0.00-0.03) X10*3/uL Absolute Neuts (auto) (2.0-8.3) X10*3/uL Absolute Nucleated RBC 0.000 (0.0-0.012) X10*3/uL Nucleated RBC % (auto) 0.0 (0.0-0.2) /100WBC PT 13.6 H (10.8-13.0) SEC INR 1.1 (0.9-1.1) APTT (24.1-38.0) SEC PTT (Heparin Protocol) 144.5 H* (53-77.9) SEC D-Dimer NG/ML Sodium (135-145) mmol/L Potassium (3.3-5.1) mmol/L Chloride (96-108) mmol/L Carbon Dioxide (22-29) mmol/L Anion Gap (12-20) BUN (9-16) mg/dL Creatinine (0.5-1.4) mg/dL Estim Creat Clear Calc Estimated GFR Random Glucose (60-115) mg/dL Calcium (8.4-10.2) mg/dL Total Bilirubin (0.0-1.0) mg/dL AST (5-37) U/L ALT (0-40) U/L Alkaline Phosphatase (39-117) U/L Troponin I High Sens 786.5 H D (<3.5-35.0) ng/L B-Natriuretic Peptide (<100) pg/mL Total Protein (6.5-8.0) g/dL Albumin (3.5-5.0) g/dL Urine Color Urine Appearance Urine pH (5.0-8.0) Ur Specific [place] (1.005-1.025) Urine Protein (NEG-TRACE) MG/DL Urine Glucose (UA) (NEG) MG/DL Urine Ketones (NEG) MG/DL Urine Blood (NEG) Urine Nitrite (NEG) Ur Leukocyte Esterase (NEG) Urine RBC (0) /HPF Urine WBC (0-4) /HPF Ur Squamous Epith Cells /LPF Urine Bacteria /LPF Urine Opiates Screen (Not Detect) Ur Barbiturates Screen (Not Detect) Ur Phencyclidine Scrn (Not Detect) Ur Amphetamines Screen (Not Detect) U Benzodiazepines Scrn (Not Detect) Urine Cocaine Screen (Not Detect) U Marijuana (THC) Screen (Not Detect) COVID-19 ([facility]) (Negative) COVID-19 Clin Com <Sylvester Poole MD - Last Filed: 08/16/20 15:53> Imaging Data Chest x-ray: Radiologist's impression: [facility] [facility] [place], [place] [address]HNzu ReportSigned Patient: Karel EdmondsMR#: [id number]: [id number]:[id number]/Sex: 50 / MADM Date: 08/16/20Loc: HO.EDAttending Dr: Ordering Physician: Sang Burgess NP Date of Service: 08/16/20 Procedure(s): XR chest 1V Accession Number(s): [id number] cc: Sang Burgess NP~ EXAMINATION: XR CHEST CLINICAL INFORMATION: Chest pain COMPARISON: None TECHNIQUE: Frontal view of the chest was obtained. FINDINGS: The lungs are well-expanded and clear of acute process. The heart size and pulmonary vascularity is normal. There is a solitary pacer electrodes in the right ventricle. No gross bony abnormality seen. XR/XR chest 1V IMPRESSION: Unremarkable chest exam. Dictated By:TERRY FERNANDEZ MDSigned By:<Electronically signed by TERRY FERNANDEZ MD in [place]>08/16/20 1232 DD/ 1131TD/TT: On Site Services Specialist: DIXIE <Sang Burgess NP - Last Filed: 08/16/20 17:48> ECG Data ECG #1: Interpretation: Normal sinus rhythm Rate 64 Low voltage QRS Septal infarct , age undetermined Lateral infarct , age undetermined Abnormal ECG No previous ECGs available <Sang Burgess NP - Last Filed: 08/16/20 17:48> ECG #2: Interpretation: Normal sinus rhythm Septal/lateral infract similar to previous Previous EKG had some artifact on it but slightly more visible T-wave inversion in the inferior/lateral leads. <Sang Burgess NP - Last Filed: 08/16/20 17:48> Discharge Plan Discharge Clinical Impression: Non-ST elevated myocardial infarction <Sang Burgess NP - Last Filed: 08/16/20 17:48> Patient Disposition: Admitted As Inpatient <Sang Burgess NP - Last Filed: 08/16/20 17:48>
--- NOTE | 2020-08-16 11:31 | ECG_ITS ---
Test Reason : REPEAT Blood Pressure : / mmHG Vent. Rate : 066 BPM Atrial Rate : 066 BPM P-R Int : 198 ms QRS Dur : 086 ms QT Int : 350 ms P-R-T Axes : 024 077 -26 degrees QTc Int : 366 ms Normal sinus rhythm Low voltage QRS Septal infarct (cited on or before 16-AUG-2020) Lateral infarct (cited on or before 16-AUG-2020) Nonspecific ST and T wave abnormality Abnormal ECG When compared with ECG of 16-AUG-2020 11:23, Non-specific change in ST segment in Inferior leads Non-specific change in ST segment in Lateral leads Nonspecific T wave abnormality, worse in Inferior leads Referred By: Sang Burgess Electronically Signed By:MELISSA MARSHALL MD
[2020-08-16 12:12] LABS: MANUAL DIFF FLAG NO
[2020-08-16 12:15] LABS: Basophils Percent Auto 0.3 % (0-2); Eosinophils Percent Auto 0.3 % (0-4); Hematocrit 46.5 % (42-52); Hemoglobin 14.9 g/dl (14.0-18.0); Imm Gran Abs Auto 0.02 X10*3/uL (0.00-0.03); Imm Gran Pct Auto 0.2 % (0.0-0.4); Lymphocytes Absolute Auto 1.8 X10*3/uL (1.2-4.9); Lymphocytes Percent Auto 18.7 % (20-40); Mean Corpuscular Hemoglobin 28.5 pg (27.0-33.0); Mean Corpuscular Volume 89.1 fL (80-98); Mean Platelet Volume 11.3 fL (9.4-12.4); Monocytes Absolute Auto 0.7 X10*3/uL (0.1-1.2); Monocytes Percent Auto 7.4 % (2-11); Neutrophils Absolute Auto 7.2 X10*3/uL (2.0-8.3); Neutrophils Percent Auto 73.1 % (45-73); Platelet Count 221 X10*3/uL (160-400); Red Blood Count 5.22 X10*6/uL (4.60-5.80); Red Cell Distribution Width 13.3 % (11.0-16.0); White Blood Count 9.8 X10*3/uL (4.8-10.8)
[2020-08-16 12:20] LABS: INTERNATIONAL NORM RATIO 1.1 (0.9-1.1); Prothrombin Time 12.9 SEC (10.8-13.0)
[2020-08-16 12:23] LABS: D Dimer 217 NG/ML; Partial Thromboplastin Time 31.2 SEC (24.1-38.0)
[2020-08-16 12:35] LABS: Alanine Aminotransferase 35 U/L (0-40); Albumin Level 4.3 g/dL (3.5-5.0); Alkaline Phosphatase 74 U/L (39-117); Anion Gap 12 (12-20); Aspartate Amino Transferase 27 U/L (5-37); Bilirubin Total 1.2 mg/dL (0.0-1.0); Blood Urea Nitrogen 21 mg/dL (9-16); Calcium 9.7 mg/dL (8.4-10.2); Carbon Dioxide 29 mmol/L (22-29); Chloride 103 mmol/L (96-108); Creatinine Clr Calc Pharmacy 71.3; Estimated Glomerular Filt Rate 48; Glucose Random 125 mg/dL (60-115); Sodium 139 mmol/L (135-145); Total Protein 8.1 g/dL (6.5-8.0)
[2020-08-16 12:37] LABS: COVID-19 Test Negative (Negative); IDNOW Serial# 9DD0AD1C
[2020-08-16 12:40] LABS: B Type Natriuretic Peptide 87 pg/mL (<100)
[2020-08-16 12:44] LABS: Troponin-I High Sensitivity 53.2 ng/L (<3.5-35.0)
[2020-08-16] MEDS: Magnesium Hydrox/Alum Hydrox 30 ML ORAL.SUSP PO (12:51)
[2020-08-16] MEDS: Lidocaine HCl Viscous 2 % 15 ML SOLUTION 10 ML MUCOUS MEM (12:52)
--- NOTE | 2020-08-16 13:15 | PC.NURSE ---
Pt reports 0/10 cp after medication. Pt resting in bed, skin w/p/d, rr even and unlabored.
[2020-08-16 13:50] LABS: Glucose Urine UA NEG (NEG); Leukocyte Esterase Urine NEG (NEG); Nitrite Urine NEG (NEG); Urine Blood TRACE (NEG); Urine Ketones NEG (NEG); Urine Protein NEG (NEG-TRACE)
[2020-08-16 13:52] LABS: Appearance Urine CLEAR; Color Urine YELLOW
[2020-08-16 14:10] LABS: WBC Urine 0 /HPF (0-4)
[2020-08-16 14:19] LABS: Amphetamine Screen Urine Not Detected (Not Detect); Barbiturates, Urine Not Detected (Not Detect); Benzodiazepines Screen Urine Not Detected (Not Detect); Cannabinoid Screen Urine Not Detected (Not Detect); Cocaine Screen Urine Not Detected (Not Detect); Opiate Screen Urine Not Detected (Not Detect); Phencyclidine Screen Urine Not Detected (Not Detect)
[2020-08-16 15:41] LABS: Troponin-I High Sensitivity 459.1 ng/L (<3.5-35.0)
[2020-08-16] MEDS: Heparin Sodium,Porcine 5,000 UNIT/ML VIAL 4000 UNIT IVPUSH (16:55)
[2020-08-16] MEDS: Heparin Sodium,Porcine/1/2NS 25,000 UNIT/250 ML IV.SOLN 15.94 UNIT IVCONT (16:56)
[2020-08-16 17:14] LABS: Hematocrit 47.7 % (42-52); Hemoglobin 15.3 g/dl (14.0-18.0); Mean Corpuscular HGB Conc 32.1 g/dl (31.0-36.0); Mean Corpuscular Hemoglobin 28.4 pg (27.0-33.0); Mean Corpuscular Volume 88.5 fL (80-98); Mean Platelet Volume 11.1 fL (9.4-12.4); Platelet Count 216 X10*3/uL (160-400); Red Blood Count 5.39 X10*6/uL (4.60-5.80); Red Cell Distribution Width 13.3 % (11.0-16.0); White Blood Count 9.9 X10*3/uL (4.8-10.8)
[2020-08-16 17:23] LABS: INTERNATIONAL NORM RATIO 1.1 (0.9-1.1); Prothrombin Time 13.6 SEC (10.8-13.0)
[2020-08-16 17:42] LABS: PTT Heparin Drip 144.5 SEC (53-77.9)
[2020-08-16 17:44] LABS: Troponin-I High Sensitivity 786.5 ng/L (<3.5-35.0)
--- NOTE | 2020-08-16 17:55 | PM.EVENT ---
Event Note Date of Service: 08/16/20 Event Note: 50-year-old gentleman with past medical history significant for ischemic cardiomyopathy since diagnose in his 30s with EF 20% also with history of pulmonary hypertension is status post AICD, history of chronic CPK elevation, history of chronic low blood pressure, history of chronic kidney disease stage 3 presented to [facility] with acute onset of chest discomfort he denies any radiation of pain with no associated diaphoresis or shortness of breath since pain was severe persistent for couple hours he decided to come to the emergency room patient was treated with GI cocktail and his chest pain resolved with no recurrence of symptoms In the ER EKG showed no acute ischemic changes but he is noted to have elevated troponin but jump from 53.2-459 On examination patient awake alert no distress Lungs clear to auscultation Heart regular rate rhythm no murmurs Abdomen obese soft nontender Extremities no edema Assessment and plan Chest pain with elevated troponin with prior history of ischemic cardiomyopathy with low EF status post AICD Chest pain completely resolved, no shortness of breath no hypoxia no evidence of arrhythmia or congestive heart failure. 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 Explain care of plan to patient and family at bedside.
--- NOTE | 2020-08-16 18:07 | PM.IMHP ---
History of Present Illness Date of Service: 08/16/20 Chief Complaint: chest pain 50-year-old man with an extensive cardiac history presents with complaints of chest pain that will, this morning. He reported retrosternal sharp chest pain that lasted several hours with radiation to his left shoulder with no other associated symptoms with alleviation after GI cocktail in the ER. Patient lives in [place] and has been visiting here. He has a head coach and primary care provider in [place]. He has a history of ischemic cardiomyopathy status post defibrillator placement. He also is status post cardiac stents. In the ER his troponin initially was 53.2 however repeat of 2nd and 3rd troponins were elevated at 459.1 and 786.5. Patient denied any further chest pain and EKG did not show however ages changes. His creatinine was noted to be elevated at 1.55 however apparently according to records from [place] respiratory and he has chronic kidney disease stage 3. chest x-ray did not show any consolidation . He was not febrile or noted to be hypoxic at any point however he did have elevated blood pressure readings highest of 170/86. He states compliance with all of his medications. He was started on IV heparin drip in the ER. He will be admitted for further management and treatment of NSTEMI. Review of Systems Review of Systems: Denies any recent fever chills or decrease in appetite respiratory denies any shortness of breath coverage production cardiovascular see HPI gastrointestinal denies any dysphagia abdominal pain nausea vomiting or diarrhea genitourinary denies any dysuria frequency or hematuria musculoskeletal denies any joint pain or swelling neuropsych denies any weakness or seizures all other systems reviewed are negative [facility] Medical History (Updated 08/16/20 @ 18:14 by Kindra Heredia NP) Anxiety CKD (chronic kidney disease) Diabetes High cholesterol HTN (hypertension) Ischemic cardiomyopathy Obesity Obstructive sleep apnea Pertinent family history: cardiac disease Surgical History (Updated 08/16/20 @ 18:14 by Kindra Hereida NP) AICD (automatic cardioverter/defibrillator) present Stented coronary artery Social History Alcohol intake: never Smoking Status: Never smoker Use of substances other than those prescribed or required for medical reasons: No Advance Directives: No Advance Directives Information Provided: No Meds Allergies Allergy/AdvReac Type Severity Reaction Status Date / Time hydromorphone [From DILAUDID] Allergy Mild PASSES OUT Verified 08/16/20 11:19 morphine [MORPHINE] Allergy Mild PASSES OUT Verified 08/16/20 11:19 Active Medications: Current Medications Generic Name Dose Route Start Last Admin Trade Name Freq PRN Reason Stop Dose Admin Heparin Sodium/Sodium Chloride 25,000 unit in 250 mls @ 0 mls/hr 08/16/20 16:30 08/16/20 16:56 IVCONT 14 units/kg/hr .Q0M TUTU 15.94 mls/hr Administration Protocol Per Protocol Home Medications Medication Instructions Recorded Confirmed Last Taken Type aspirin 81 mg PO DAILY 08/16/20 08/16/20 08/16/20 History buspirone 15 mg PO BID 08/16/20 08/16/20 08/16/20 History carvedilol 25 mg PO BID 08/16/20 08/16/20 08/16/20 History cyanocobalamin (vitamin B-12) 1,000 mcg SUBLINGUAL DAILY 08/16/20 08/16/20 08/16/20 History digoxin 125 mcg PO DAILY 08/16/20 08/16/20 08/16/20 History ergocalciferol (vitamin D2) 1,250 mcg PO MO@0900 08/16/20 08/16/20 08/15/20 History ezetimibe 10 mg PO DAILY 08/16/20 08/16/20 08/16/20 History furosemide 60 mg PO DAILY 08/16/20 08/16/20 08/16/20 History pantoprazole 40 mg PO DAILY 08/16/20 08/16/20 08/15/20 History rosuvastatin 40 mg PO DAILY 08/16/20 08/16/20 08/16/20 History sacubitril-valsartan [Entresto] 1 tab PO BID 08/16/20 08/16/20 08/16/20 History sertraline 50 mg PO DAILY 08/16/20 08/16/20 08/16/20 History spironolactone 12.5 mg PO DAILY 08/16/20 08/16/20 08/16/20 History zolpidem 10 mg PO BEDTIME PRN 08/16/20 08/16/20 Unknown History Physical Exam Vital Signs and Narrative: Vital Signs: Last Vital Signs Temp 97.8 F 08/16/20 16:52 Pulse 77 08/16/20 16:52 Resp 24 H 08/16/20 16:52 BP 164/96 H 08/16/20 16:52 Pulse Ox 100 08/16/20 16:52 Body Mass Index 40.4 Appearing in no acute distress head is normocephalic atraumatic eyes pupils are PERRLA sclera is anicteric mouth throat mucous membranes are intact and moist neck is supple no lymphadenopathy, no JVD noted lung sounds are clear to auscultation heart regular rate rhythm, clear S1, S2 positive bowel sounds, abdomen is soft, nontender neuro patient is alert x3, no focal deficits Results Labs CBC and Chem 7: 08/16/20 17:08 08/16/20 11:59 Labs: Laboratory Results - last 24 hr 08/16/20 08/16/20 08/16/20 11:59 11:59 11:59 MCV 89.1 MCH 28.5 MCHC 32.0 RDW 13.3 Plt Count 221 MPV 11.3 Immature Gran % (Auto) 0.2 Neut % (Auto) 73.1 H Lymph % (Auto) 18.7 L [place] % (Auto) 7.4 Eos % (Auto) 0.3 Baso % (Auto) 0.3 Lymph # (Auto) 1.8 [place] # (Auto) 0.7 Eos # (Auto) 0.0 Baso # (Auto) 0.0 Abs Immat Gran (auto) 0.02 Absolute Neuts (auto) 7.2 Absolute Nucleated RBC 0.000 Nucleated RBC % (auto) 0.0 PT 12.9 INR 1.1 APTT 31.2 PTT (Heparin Protocol) D-Dimer 217 Anion Gap 12 Estim Creat Clear Calc 71.3 Estimated GFR 48 Random Glucose 125 H Calcium 9.7 Total Bilirubin 1.2 H AST 27 ALT 35 Alkaline Phosphatase 74 Troponin I High Sens B-Natriuretic Peptide Total Protein 8.1 H Albumin 4.3 Urine Color Urine Appearance Urine pH Ur Specific [place] Urine Protein Urine Glucose (UA) Urine Ketones Urine Blood Urine Nitrite Ur Leukocyte Esterase Urine RBC Urine WBC Ur Squamous Epith Cells Urine Bacteria Urine Opiates Screen Ur Barbiturates Screen Ur Phencyclidine Scrn Ur Amphetamines Screen U Benzodiazepines Scrn Urine Cocaine Screen U Marijuana (THC) Screen COVID-19 (KAREY) COVID-19 Clin Com 08/16/20 08/16/20 08/16/20 11:59 11:59 11:59 MCV MCH MCHC RDW Plt Count MPV Immature Gran % (Auto) Neut % (Auto) Lymph % (Auto) [place] % (Auto) Eos % (Auto) Baso % (Auto) Lymph # (Auto) [place] # (Auto) Eos # (Auto) Baso # (Auto) Abs Immat Gran (auto) Absolute Neuts (auto) Absolute Nucleated RBC Nucleated RBC % (auto) PT INR APTT PTT (Heparin Protocol) D-Dimer Anion Gap Estim Creat Clear Calc Estimated GFR Random Glucose Calcium Total Bilirubin AST ALT Alkaline Phosphatase Troponin I High Sens 53.2 H B-Natriuretic Peptide 87 Total Protein Albumin Urine Color Urine Appearance Urine pH Ur Specific [place] Urine Protein Urine Glucose (UA) Urine Ketones Urine Blood Urine Nitrite Ur Leukocyte Esterase Urine RBC Urine WBC Ur Squamous Epith Cells Urine Bacteria Urine Opiates Screen Ur Barbiturates Screen Ur Phencyclidine Scrn Ur Amphetamines Screen U Benzodiazepines Scrn Urine Cocaine Screen U Marijuana (THC) Screen COVID-19 (KAREY) Negative COVID-19 [employer] See Note 08/16/20 08/16/20 08/16/20 13:10 13:10 14:56 MCV MCH MCHC RDW Plt Count MPV Immature Gran % (Auto) Neut % (Auto) Lymph % (Auto) [place] % (Auto) Eos % (Auto) Baso % (Auto) Lymph # (Auto) [place] # (Auto) Eos # (Auto) Baso # (Auto) Abs Immat Gran (auto) Absolute Neuts (auto) Absolute Nucleated RBC Nucleated RBC % (auto) PT INR APTT PTT (Heparin Protocol) D-Dimer Anion Gap Estim Creat Clear Calc Estimated GFR Random Glucose Calcium Total Bilirubin AST ALT Alkaline Phosphatase Troponin I High Sens 459.1 H D B-Natriuretic Peptide Total Protein Albumin Urine Color YELLOW Urine Appearance CLEAR Urine pH 7.0 Ur Specific [place] 1.020 Urine Protein NEG Urine Glucose (UA) NEG Urine Ketones NEG Urine Blood TRACE Urine Nitrite NEG Ur Leukocyte Esterase NEG Urine RBC 1-4 Urine WBC 0 Ur Squamous Epith Cells NONE Urine Bacteria NONE Urine Opiates Screen Not Detected Ur Barbiturates Screen Not Detected Ur Phencyclidine Scrn Not Detected Ur Amphetamines Screen Not Detected U Benzodiazepines Scrn Not Detected Urine Cocaine Screen Not Detected U Marijuana (THC) Screen Not Detected COVID-19 (KAREY) COVID-[employer] 08/16/20 08/16/20 08/16/20 17:08 17:08 17:08 MCV 88.5 MCH 28.4 MCHC 32.1 RDW 13.3 Plt Count 216 MPV 11.1 Immature Gran % (Auto) Neut % (Auto) Lymph % (Auto) [place] % (Auto) Eos % (Auto) Baso % (Auto) Lymph # (Auto) [place] # (Auto) Eos # (Auto) Baso # (Auto) Abs Immat Gran (auto) Absolute Neuts (auto) Absolute Nucleated RBC 0.000 Nucleated RBC % (auto) 0.0 PT 13.6 H INR 1.1 APTT PTT (Heparin Protocol) 144.5 H* D-Dimer Anion Gap Estim Creat Clear Calc Estimated GFR Random Glucose Calcium Total Bilirubin AST ALT Alkaline Phosphatase Troponin I High Sens 786.5 H D B-Natriuretic Peptide Total Protein Albumin Urine Color Urine Appearance Urine pH Ur Specific [place] Urine Protein Urine Glucose (UA) Urine Ketones Urine Blood Urine Nitrite Ur Leukocyte Esterase Urine RBC Urine WBC Ur Squamous Epith Cells Urine Bacteria Urine Opiates Screen Ur Barbiturates Screen Ur Phencyclidine Scrn Ur Amphetamines Screen U Benzodiazepines Scrn Urine Cocaine Screen U Marijuana (THC) Screen COVID-19 (K[facility]Y) COVID-19 Clin Com Imaging Radiologist's Impressions: Impressions Chest X-Ray 08/16/20 11:31 IMPRESSION: Unremarkable chest exam. Assessment and Plan (1) Non-ST elevated myocardial infarction: Status: Acute 50-year-old man presenting with complaints of chest pain that woke him up this morning that lasted several hours with radiation to his left shoulder in no other associated symptoms. He has an extensive cardiac history and has an AICD. [place] is a [place] and visiting here in [facility] when he developed chest pain and came to the ER. He follows with a head coach in [place]. EKG showed some nonspecific changes, initial troponin was in the 50s repeat was in the 700s. Cardiology aware, started on NSTEMI protocol including IV heparin drip due to chronic kidney disease. NSTEMI. History of coronary artery disease with stents and AICD from ischemic cardiomyopathy. No further chest pain at this time. -IV heparin -cardiology consultation -echocardiogram -aspirin, statin, continue beta manuel. CKD. Unknown baseline, will follow BMP. -avoid nephrotoxins Diabetes mellitus. -sliding scale, ADA diet. -check A1c History ofIschemic cardiomyopathy. no heart failure exacerbation -continue Entresto, spironolactone, Lasix. Obesity. BMI 40.4. Discussed the importance of weight reduction as this may contribute to worsening comorbidities. Obstructive sleep apnea. -CPAP DVT prophylaxis with IV heparin Attending Dr. Paredes Full code
--- NOTE | 2020-08-16 19:06 | PC.NURSE ---
X1 ATTEMPT TO CALL REPROT- NO ANSWER
--- NOTE | 2020-08-16 19:59 | PC.NURSE ---
x2 to get report
[2020-08-16 21:07] LABS: Glucose, Whole Blood 140 mg/dL (60-115)
[2020-08-16] MEDS: carvediloL 25 MG TABLET PO (22:12)
[2020-08-16] MEDS: Sacubitril/Valsartan 97/103 1 TAB TABLET PO (22:12)
[2020-08-16] MEDS: 0.9 % Sodium Chloride Flush 3 ML SYRINGE IVFLUSH (22:14)
[2020-08-16 23:08] LABS: PTT Heparin Drip 98.6 SEC (53-77.9)
[2020-08-17] VITALS (7 sets, daily range): BP systolic 101–112; BP diastolic 64–75; PULSE 60–75; RESP 20; TEMP 36.1–36.9; O2SAT 95–97; BMI 39.2
[2020-08-17] MEDS: Omeprazole 20 MG CAPSULE.DR PO (05:26)
[2020-08-17 06:14] LABS: MANUAL DIFF FLAG NO
[2020-08-17 06:25] LABS: Basophils Percent Auto 0.3 % (0-2); Eosinophils Absolute Auto 0.1 X10*3/uL (0.0-0.4); Eosinophils Percent Auto 0.5 % (0-4); Hematocrit 47.4 % (42-52); Imm Gran Abs Auto 0.04 X10*3/uL (0.00-0.03); Imm Gran Pct Auto 0.4 % (0.0-0.4); Lymphocytes Absolute Auto 2.1 X10*3/uL (1.2-4.9); Lymphocytes Percent Auto 22.4 % (20-40); Mean Corpuscular HGB Conc 31.6 g/dl (31.0-36.0); Mean Corpuscular Hemoglobin 28.6 pg (27.0-33.0); Mean Corpuscular Volume 90.3 fL (80-98); Mean Platelet Volume 11.3 fL (9.4-12.4); Monocytes Absolute Auto 0.7 X10*3/uL (0.1-1.2); Monocytes Percent Auto 7.6 % (2-11); Neutrophils Absolute Auto 6.5 X10*3/uL (2.0-8.3); Neutrophils Percent Auto 68.8 % (45-73); Platelet Count 203 X10*3/uL (160-400); Red Blood Count 5.25 X10*6/uL (4.60-5.80); Red Cell Distribution Width 13.4 % (11.0-16.0); White Blood Count 9.4 X10*3/uL (4.8-10.8)
[2020-08-17 06:31] LABS: PTT Heparin Drip 79.8 SEC (53-77.9)
[2020-08-17 06:50] LABS: Anion Gap 12 (12-20); Blood Urea Nitrogen 16 mg/dL (9-16); Calcium 9.3 mg/dL (8.4-10.2); Carbon Dioxide 28 mmol/L (22-29); Chloride 105 mmol/L (96-108); Cholesterol 158 mg/dL; Creatinine Clr Calc Pharmacy 80.1; Estimated Glomerular Filt Rate 54; Glucose Random 120 mg/dL (60-115); HDL Cholesterol 28 mg/dL; LDL Cholesterol Calculated 101 mg/dl; Potassium 4.7 mmol/L (3.3-5.1); Sodium 140 mmol/L (135-145); Triglycerides 149 mg/dL
[2020-08-17 07:13] LABS: Estimated Average Glucose 143 mg/dL; Hemoglobin A1c % 6.6 %
[2020-08-17 07:40] LABS: Glucose, Whole Blood 106 mg/dL (60-115)
[2020-08-17] MEDS: Sacubitril/Valsartan 97/103 1 TAB TABLET PO (08:04)
[2020-08-17] MEDS: Ezetimibe 10 MG TABLET PO (08:04)
[2020-08-17] MEDS: Digoxin 0.125 MG TABLET PO (08:04)
[2020-08-17] MEDS: Furosemide 20 MG TABLET 60 MG PO (08:05)
[2020-08-17] MEDS: Sertraline HCL 50 MG TABLET PO (08:06)
[2020-08-17] MEDS: Spironolactone 25 MG TABLET 12.5 MG PO (08:07)
[2020-08-17] MEDS: Aspirin Enteric Coated 81 MG TABLET.DR PO (08:07)
[2020-08-17] MEDS: carvediloL 25 MG TABLET PO (08:08)
[2020-08-17] MEDS: Atorvastatin Calcium 80 MG TABLET PO (08:09)
[2020-08-17] MEDS: 0.9 % Sodium Chloride Flush 3 ML SYRINGE IVFLUSH (08:10)
[2020-08-17 11:20] LABS: Glucose, Whole Blood 130 mg/dL (60-115)
--- NOTE | 2020-08-17 12:11 | PM.CNCAR ---
History of Present Illness History of Present Illness Date of Service: 08/17/20 Consult reason: other (Acute coronary syndrome) Chief complaint: NSTEMI Narrative: Thank you for asking us to see 1 in cardiology consultation today for acute coronary syndrome. History was obtained with help of a certified rampman at bedside. He is a 50-year-old male with prior history of extensive cardiovascular interventions in the past starting in 2007 when he has his 1st myocardial infarction. He said he had 3 stents put in at that time. Subsequently 2011 he had repeat intervention and again in 2015 he had repeat intervention and was last intervention. He generally lives in [place] and was visiting family in [place]. Yesterday morning while he was sleeping he woke up at around 07:30 with severe retrosternal chest pressure/sharp discomfort. Symptoms were not subsiding. He had no nausea vomiting diaphoresis or dizziness. He present to emergency room. Eventually symptoms resolved subsequently with GI cocktail. However his cardiac markers were rising suggestive of myocardial injury with primary acute coronary syndrome despite being on good medical therapy. Was admitted started IV heparin. He has remained chest pain-free since the emergency room. Overnight he had 1 short run of accelerated idioventricular rhythm. No other major arrhythmias. Hemodynamically stable at this point in time. Review of Systems Constitutional: Constitutional: Reports no additional constitutional complaints Cardiovascular: Cardiovascular: Reports chest pain, Reports chest pain at rest, Denies lightheadedness, Denies Loss of Consciousness, Denies palpitations and Denies dyspnea Respiratory: Respiratory: Reports no additional respiratory complaints and Denies dyspnea Gastrointestinal: Gastrointestinal: Reports no additional gastrointestinal complaints Genitourinary: Genitourinary: Reports no additional male genitourinary complaints Integumentary/Breasts: Skin/Breast: Reports system reviewed and no additional complaints, except as docu Neurologic: Reports system reviewed and no additional complaints, except as documented Psychiatric: Psychiatric: Reports no additional psychiatric complaints Endocrine: Endocrine: Reports no additional endocrine complaints and Denies palpitations Hematologic/Lymphatic: Hematologic/Lymphatic: Reports no additional hematologic/lymphatic complaints [facility] Past Medical History Medical History (Updated 08/17/20 @ 12:21 by Charles Denise MD) Anxiety CKD (chronic kidney disease) Diabetes High cholesterol HTN (hypertension) Ischemic cardiomyopathy Obesity Obstructive sleep apnea Surgical History Surgical History AICD (automatic cardioverter/defibrillator) present Stented coronary artery Social History Social History Household Members: Spouse Housing: Apartment Alcohol intake: never Smoking Status: Never smoker Use of substances other than those prescribed or required for medical reasons: No Currently Displaying Signs/Symptoms of Drug Intoxication Withdrawal: No Have you been hit, kicked, punched, or otherwise hurt by someone within the past year? If so, by whom?: No Do you feel safe in your current relationship?: Yes Is there a partner from a previous relationship who is making you feel unsafe now?: No Advance Directives: No Advance Directives Information Provided: No Do you have thoughts of harming others: None Do you have a plan to hurt others: No Plan Recently lost weight without trying: No Meds Allergies Allergy/AdvReac Type Severity Reaction Status Date / Time hydromorphone [From DILAUDID] Allergy Mild PASSES OUT Verified 08/16/20 11:19 morphine [MORPHINE] Allergy Mild PASSES OUT Verified 08/16/20 11:19 Active Medications: Current Medications Generic Name Dose Route Start Last Admin Trade Name Freq PRN Reason Stop Dose Admin Acetaminophen 650 mg 08/16/20 18:31 Acetaminophen 325 Mg Tablet PO Q6H PRN Pain, Mild (Pain Scale 1-3) Aspirin 81 mg 08/17/20 09:00 08/17/20 08:07 Aspirin Enteric Coated 81 Mg Tablet. PO 81 mg DAILY TUTU Administration Atorvastatin Calcium 80 mg 08/17/20 09:00 08/17/20 08:09 Atorvastatin Calcium 80 Mg Tablet PO 80 mg DAILY TUTU Administration Buspirone HCl 15 mg 08/16/20 21:00 08/17/20 08:10 Buspirone Hcl 5 Mg Tablet PO Not Given BID TUTU Carvedilol 25 mg 08/16/20 21:00 08/17/20 08:08 Carvedilol 25 Mg Tablet PO 25 mg BID TUTU Administration Protocol Digoxin 0.125 mg 08/17/20 09:00 08/17/20 08:04 Digoxin 0.125 Mg Tablet PO 0.125 mg DAILY TUTU Administration Ezetimibe 10 mg 08/17/20 09:00 08/17/20 08:04 Ezetimibe 10 Mg Tablet PO 10 mg DAILY TUTU Administration Ergocalciferol 1,250 mcg 08/22/20 09:00 Ergocalciferol (Vitamin D2) 1,250 Mcg Capsule PO MO@0900 [facility] Furosemide 60 mg 08/17/20 09:00 08/17/20 08:05 Furosemide 20 Mg Tablet PO 60 mg DAILY [facility] Administration Protocol Heparin Sodium/Sodium Chloride 25,000 unit in 250 mls @ 0 mls/hr 08/16/20 16:30 08/17/20 07:43 IVCONT 9 units/kg/hr .Q0M [facility] 10.25 mls/hr Titration Protocol Per Protocol Insulin Human Lispro 0 unit 08/16/20 21:00 08/17/20 11:29 Insulin Lispro 100 Unit/Ml 3 Ml Vial SUBCUT Not Given QIDACHS [facility] Protocol Omeprazole 20 mg 08/17/20 06:30 08/17/20 05:26 Omeprazole 20 Mg Capsule.Dr PO 20 mg DAILY@0630 [facility] Administration Ondansetron HCl 4 mg 08/16/20 18:31 Ondansetron Hcl 4 Mg/2 Ml Vial IVPUSH Q8H PRN Nausea and Vomiting Sacubitril/Valsartan 1 tab 08/16/20 21:00 08/17/20 08:04 Sacubitril/Valsartan 97/103 1 Tab Tablet PO 1 tab BID [facility] Administration Protocol Sertraline HCl 50 mg 08/17/20 09:00 08/17/20 08:06 Sertraline Hcl 50 Mg Tablet PO 50 mg DAILY [facility] Administration Sodium Chloride 3 ml 08/17/20 00:00 08/17/20 08:10 0.9 % Sodium Chloride Flush 3 Ml Syringe IVFLUSH 3 ml QSHIFT [facility] Administration Spironolactone 12.5 mg 08/17/20 09:00 08/17/20 08:07 Spironolactone 25 Mg Tablet PO 12.5 mg DAILY [facility] Administration Protocol Zolpidem Tartrate 10 mg 08/16/20 18:31 Zolpidem Tartrate 5 Mg Tablet PO BEDTIME PRN Insomnia Home Medications Medication Instructions Recorded Confirmed Last Taken Type aspirin 81 mg PO DAILY 08/16/20 08/16/20 08/16/20 History buspirone 15 mg PO BID 08/16/20 08/16/20 08/16/20 History carvedilol 25 mg PO BID 08/16/20 08/16/20 08/16/20 History cyanocobalamin (vitamin B-12) 1,000 mcg SUBLINGUAL DAILY 08/16/20 08/16/20 08/16/20 History digoxin 125 mcg PO DAILY 08/16/20 08/16/20 08/16/20 History ergocalciferol (vitamin D2) 1,250 mcg PO MO@0900 08/16/20 08/16/20 08/15/20 History ezetimibe 10 mg PO DAILY 08/16/20 08/16/20 08/16/20 History furosemide 60 mg PO DAILY 08/16/20 08/16/20 08/16/20 History pantoprazole 40 mg PO DAILY 08/16/20 08/16/20 08/15/20 History rosuvastatin 40 mg PO DAILY 08/16/20 08/16/20 08/16/20 History sacubitril-valsartan [Entresto] 1 tab PO BID 08/16/20 08/16/20 08/16/20 History sertraline 50 mg PO DAILY 08/16/20 08/16/20 08/16/20 History spironolactone 12.5 mg PO DAILY 08/16/20 08/16/20 08/16/20 History zolpidem 10 mg PO BEDTIME PRN 08/16/20 08/16/20 Unknown History Physical Exam Vital Signs: Vital Signs: Last Vital Signs Temp 98.5 F 08/17/20 11:10 Pulse 66 08/17/20 11:10 Resp 20 08/17/20 11:10 BP 106/67 08/17/20 11:10 Pulse Ox 97 08/17/20 11:10 Body Mass Index 39.2 Const: General: cooperative, comfortable, no acute distress, alert and awake Nutritional Appearance: obese Orientation/consciousness: patient oriented x3 Limitations: no limitations HENMT: Head: Yes normocephalic and Yes atraumatic Neck: Neck: Yes trachea midline, Yes supple and Yes no JVD Resp: Effort & Inspection: normal respiratory effort Auscultation: clear to auscultation bilaterally Cardio: Jugular venous distension: no JVD Palpation: normal PMI Rate: regular rate Rhythm: regular rhythm Heart sounds: S1 normal heart sound present and S2 normal heart sound present GI: Auscultation: normal bowel sounds Skin: General skin exam: no rashes or lesions noted Neuro: General: patient oriented x3 and no focal motor deficits Extrem: General: Yes no clubbing, cyanosis or edema Psych: Appearance: grossly normal Results Labs and Meds Result diagrams: 08/17/20 05:30 08/17/20 05:30 Lab results: Laboratory Results - last 24 hr 08/16/20 08/16/20 08/16/20 11:59 11:59 11:59 WBC 9.8 RBC 5.22 Hgb 14.9 Hct 46.5 MCV 89.1 MCH 28.5 MCHC 32.0 RDW 13.3 Plt Count 221 MPV 11.3 Immature Gran % (Auto) 0.2 Neut % (Auto) 73.1 H Lymph % (Auto) 18.7 L Haines % (Auto) 7.4 Eos % (Auto) 0.3 Baso % (Auto) 0.3 Lymph # (Auto) 1.8 Haines # (Auto) 0.7 Eos # (Auto) 0.0 Baso # (Auto) 0.0 Abs Immat Gran (auto) 0.02 Absolute Neuts (auto) 7.2 Absolute Nucleated RBC 0.000 Nucleated RBC % (auto) 0.0 PT 12.9 INR 1.1 APTT 31.2 PTT (Heparin Protocol) D-Dimer 217 Sodium 139 Potassium 5.0 Chloride 103 Carbon Dioxide 29 Anion Gap 12 BUN 21 H Creatinine 1.55 H Estim Creat Clear Calc 71.3 Estimated GFR 48 POC Glucose Random Glucose 125 H Estimat Average Glucose Hemoglobin A1c % Calcium 9.7 Total Bilirubin 1.2 H AST 27 ALT 35 Alkaline Phosphatase 74 Troponin I High Sens B-Natriuretic Peptide Total Protein 8.1 H Albumin 4.3 Triglycerides Cholesterol LDL Cholesterol, Calc HDL Cholesterol Urine Color Urine Appearance Urine pH Ur Specific Linn Urine Protein Urine Glucose (UA) Urine Ketones Urine Blood Urine Nitrite Ur Leukocyte Esterase Urine RBC Urine WBC Ur Squamous Epith Cells Urine Bacteria Urine Opiates Screen Ur Barbiturates Screen Ur Phencyclidine Scrn Ur Amphetamines Screen U Benzodiazepines Scrn Urine Cocaine Screen U Marijuana (THC) Screen COVID-19 ([facility]) COVID-19 Clin Com 08/16/20 08/16/20 08/16/20 11:59 11:59 11:59 WBC RBC Hgb Hct MCV MCH MCHC RDW Plt Count MPV Immature Gran % (Auto) Neut % (Auto) Lymph % (Auto) Haines % (Auto) Eos % (Auto) Baso % (Auto) Lymph # (Auto) Haines # (Auto) Eos # (Auto) Baso # (Auto) Abs Immat Gran (auto) Absolute Neuts (auto) Absolute Nucleated RBC Nucleated RBC % (auto) PT INR APTT PTT (Heparin Protocol) D-Dimer Sodium Potassium Chloride Carbon Dioxide Anion Gap BUN Creatinine Estim Creat Clear Calc Estimated GFR POC Glucose Random Glucose Estimat Average Glucose Hemoglobin A1c % Calcium Total Bilirubin AST ALT Alkaline Phosphatase Troponin I High Sens 53.2 H B-Natriuretic Peptide 87 Total Protein Albumin Triglycerides Cholesterol LDL Cholesterol, Calc HDL Cholesterol Urine Color Urine Appearance Urine pH Ur Specific Linn Urine Protein Urine Glucose (UA) Urine Ketones Urine Blood Urine Nitrite Ur Leukocyte Esterase Urine RBC Urine WBC Ur Squamous Epith Cells Urine Bacteria Urine Opiates Screen Ur Barbiturates Screen Ur Phencyclidine Scrn Ur Amphetamines Screen U Benzodiazepines Scrn Urine Cocaine Screen U Marijuana (THC) Screen COVID-19 ([facility]) Negative COVID-19 Clin Com See Note 08/16/20 08/16/20 08/16/20 13:10 13:10 14:56 WBC RBC Hgb Hct MCV MCH MCHC RDW Plt Count MPV Immature Gran % (Auto) Neut % (Auto) Lymph % (Auto) Haines % (Auto) Eos % (Auto) Baso % (Auto) Lymph # (Auto) Haines # (Auto) Eos # (Auto) Baso # (Auto) Abs Immat Gran (auto) Absolute Neuts (auto) Absolute Nucleated RBC Nucleated RBC % (auto) PT INR APTT PTT (Heparin Protocol) D-Dimer Sodium Potassium Chloride Carbon Dioxide Anion Gap BUN Creatinine Estim Creat Clear Calc Estimated GFR POC Glucose Random Glucose Estimat Average Glucose Hemoglobin A1c % Calcium Total Bilirubin AST ALT Alkaline Phosphatase Troponin I High Sens 459.1 H D B-Natriuretic Peptide Total Protein Albumin Triglycerides Cholesterol LDL Cholesterol, Calc HDL Cholesterol Urine Color YELLOW Urine Appearance CLEAR Urine pH 7.0 Ur Specific Linn 1.020 Urine Protein NEG Urine Glucose (UA) NEG Urine Ketones NEG Urine Blood TRACE Urine Nitrite NEG Ur Leukocyte Esterase NEG Urine RBC 1-4 Urine WBC 0 Ur Squamous Epith Cells NONE Urine Bacteria NONE Urine Opiates Screen Not Detected Ur Barbiturates Screen Not Detected Ur Phencyclidine Scrn Not Detected Ur Amphetamines Screen Not Detected U Benzodiazepines Scrn Not Detected Urine Cocaine Screen Not Detected U Marijuana (THC) Screen Not Detected COVID-19 ([facility]) COVID-19 Clin Com 08/16/20 08/16/20 08/16/20 17:08 17:08 17:08 WBC 9.9 RBC 5.39 Hgb 15.3 Hct 47.7 MCV 88.5 MCH 28.4 MCHC 32.1 RDW 13.3 Plt Count 216 MPV 11.1 Immature Gran % (Auto) Neut % (Auto) Lymph % (Auto) Haines % (Auto) Eos % (Auto) Baso % (Auto) Lymph # (Auto) Haines # (Auto) Eos # (Auto) Baso # (Auto) Abs Immat Gran (auto) Absolute Neuts (auto) Absolute Nucleated RBC 0.000 Nucleated RBC % (auto) 0.0 PT 13.6 H INR 1.1 APTT PTT (Heparin Protocol) 144.5 H* D-Dimer Sodium Potassium Chloride Carbon Dioxide Anion Gap BUN Creatinine Estim Creat Clear Calc Estimated GFR POC Glucose Random Glucose Estimat Average Glucose Hemoglobin A1c % Calcium Total Bilirubin AST ALT Alkaline Phosphatase Troponin I High Sens 786.5 H D B-Natriuretic Peptide Total Protein Albumin Triglycerides Cholesterol LDL Cholesterol, Calc HDL Cholesterol Urine Color Urine Appearance Urine pH Ur Specific Linn Urine Protein Urine Glucose (UA) Urine Ketones Urine Blood Urine Nitrite Ur Leukocyte Esterase Urine RBC Urine WBC Ur Squamous Epith Cells Urine Bacteria Urine Opiates Screen Ur Barbiturates Screen Ur Phencyclidine Scrn Ur Amphetamines Screen U Benzodiazepines Scrn Urine Cocaine Screen U Marijuana (THC) Screen COVID-19 ([facility]) COVID-19 Clin Com 08/16/20 08/16/20 08/17/20 21:03 22:47 05:30 WBC 9.4 RBC 5.25 Hgb 15.0 Hct 47.4 MCV 90.3 MCH 28.6 MCHC 31.6 RDW 13.4 Plt Count 203 MPV 11.3 Immature Gran % (Auto) 0.4 Neut % (Auto) 68.8 Lymph % (Auto) 22.4 Haines % (Auto) 7.6 Eos % (Auto) 0.5 Baso % (Auto) 0.3 Lymph # (Auto) 2.1 Haines # (Auto) 0.7 Eos # (Auto) 0.1 Baso # (Auto) 0.0 Abs Immat Gran (auto) 0.04 H Absolute Neuts (auto) 6.5 Absolute Nucleated RBC 0.000 Nucleated RBC % (auto) 0.0 PT INR APTT PTT (Heparin Protocol) 98.6 H D D-Dimer Sodium Potassium Chloride Carbon Dioxide Anion Gap BUN Creatinine Estim Creat Clear Calc Estimated GFR POC Glucose 140 H Random Glucose Estimat Average Glucose Hemoglobin A1c % Calcium Total Bilirubin AST ALT Alkaline Phosphatase Troponin I High Sens B-Natriuretic Peptide Total Protein Albumin Triglycerides Cholesterol LDL Cholesterol, Calc HDL Cholesterol Urine Color Urine Appearance Urine pH Ur Specific Linn Urine Protein Urine Glucose (UA) Urine Ketones Urine Blood Urine Nitrite Ur Leukocyte Esterase Urine RBC Urine WBC Ur Squamous Epith Cells Urine Bacteria Urine Opiates Screen Ur Barbiturates Screen Ur Phencyclidine Scrn Ur Amphetamines Screen U Benzodiazepines Scrn Urine Cocaine Screen U Marijuana (THC) Screen COVID-19 ([facility]) [employer] 08/17/20 08/17/20 08/17/20 05:30 05:30 05:30 WBC RBC Hgb Hct MCV MCH MCHC RDW Plt Count MPV Immature Gran % (Auto) Neut % (Auto) Lymph % (Auto) Haines % (Auto) Eos % (Auto) Baso % (Auto) Lymph # (Auto) Haines # (Auto) Eos # (Auto) Baso # (Auto) Abs Immat Gran (auto) Absolute Neuts (auto) Absolute Nucleated RBC Nucleated RBC % (auto) PT INR APTT PTT (Heparin Protocol) 79.8 H D-Dimer Sodium 140 Potassium 4.7 Chloride 105 Carbon Dioxide 28 Anion Gap 12 BUN 16 Creatinine 1.40 Estim Creat Clear Calc 80.1 Estimated GFR 54 POC Glucose Random Glucose 120 H Estimat Average Glucose 143 Hemoglobin A1c % 6.6 Calcium 9.3 Total Bilirubin AST ALT Alkaline Phosphatase Troponin I High Sens B-Natriuretic Peptide Total Protein Albumin Triglycerides 149 Cholesterol 158 LDL Cholesterol, Calc 101 HDL Cholesterol 28 Urine Color Urine Appearance Urine pH Ur Specific Linn Urine Protein Urine Glucose (UA) Urine Ketones Urine Blood Urine Nitrite Ur Leukocyte Esterase Urine RBC Urine WBC Ur Squamous Epith Cells Urine Bacteria Urine Opiates Screen Ur Barbiturates Screen Ur Phencyclidine Scrn Ur Amphetamines Screen U Benzodiazepines Scrn Urine Cocaine Screen U Marijuana (THC) Screen COVID-19 ([facility]) [employer] 08/17/20 08/17/20 07:34 11:08 WBC RBC Hgb Hct MCV MCH MCHC RDW Plt Count MPV Immature Gran % (Auto) Neut % (Auto) Lymph % (Auto) Haines % (Auto) Eos % (Auto) Baso % (Auto) Lymph # (Auto) Haines # (Auto) Eos # (Auto) Baso # (Auto) Abs Immat Gran (auto) Absolute Neuts (auto) Absolute Nucleated RBC Nucleated RBC % (auto) PT INR APTT PTT (Heparin Protocol) D-Dimer Sodium Potassium Chloride Carbon Dioxide Anion Gap BUN Creatinine Estim Creat Clear Calc Estimated GFR POC Glucose 106 130 H Random Glucose Estimat Average Glucose Hemoglobin A1c % Calcium Total Bilirubin AST ALT Alkaline Phosphatase Troponin I High Sens B-Natriuretic Peptide Total Protein Albumin Triglycerides Cholesterol LDL Cholesterol, Calc HDL Cholesterol Urine Color Urine Appearance Urine pH Ur Specific Linn Urine Protein Urine Glucose (UA) Urine Ketones Urine Blood Urine Nitrite Ur Leukocyte Esterase Urine RBC Urine WBC Ur Squamous Epith Cells Urine Bacteria Urine Opiates Screen Ur Barbiturates Screen Ur Phencyclidine Scrn Ur Amphetamines Screen U Benzodiazepines Scrn Urine Cocaine Screen U Marijuana (THC) Screen COVID-19 ([facility]) COVID-19 Clin Com EKG shows normal sinus rhythm with low-voltage QRS with septal and lateral infarct Imaging Radiologist's impression: Impressions Chest X-Ray 08/16/20 11:31 IMPRESSION: Unremarkable chest exam. Assessment and Plan (1) Non-ST elevated myocardial infarction: Status: Acute Acute coronary syndrome acute coronary syndrome with on good multiple high risk features including rising cardiac markers, borderline EKG changes and prolonged chest pain and prior aspirin therapy. Patient currently chest pain free. Hemodynamically stable. Patient will require cardiac catheterization to evaluate coronary anatomy. This will be performed tomorrow. Patient will be transferred to [facility] today. We discussed the risks, benefits, alternatives 2nd appeared to cardiac catheterization. He is agreeable. Continue IV heparin till tomorrow. Continue other medical therapy. Continue high-intensity statin therapy with Lipitor 80 mg daily. Further treatment based on the findings of cardiac catheterization. (2) Ischemic cardiomyopathy: Status: Acute Severe ischemic cardiomyopathy without overt heart failure with new acute coronary syndrome. Requires cardiac catheterization above. Currently on good medical therapy including carvedilol, Entresto, Aldactone. Also on digoxin therapy. Continue all of these. Will follow as outpatient after cardiac catheterization if he still in [place] after cardiac catheterization.
--- NOTE | 2020-08-17 12:46 | P.DS_ITS ---
DS: Providers Provider Date of Service: 08/17/20 Date of admission: 08/16/20 18:31 Primary care physician: None Physician Consults: 08/16/20 18:31 Consult to Cardiology Routine Consulting Provider: Charles Denise Reason for consultation: STEMI Has provider been notified: No 08/16/20 20:37 Consult Respiratory Therapy Routine Reason for consultation: CPAP at night DS: Diagnosis Discharge Diagnosis (1) Non-ST elevated myocardial infarction: Status: Acute (2) Ischemic cardiomyopathy: Status: Acute DS: Medications Discharge Medications Home Medications: Home Medications Medication Instructions Recorded Confirmed Entresto 1 tab PO BID 08/16/20 08/16/20 aspirin 81 mg PO DAILY 08/16/20 08/16/20 buspirone 15 mg PO BID 08/16/20 08/16/20 carvedilol 25 mg PO BID 08/16/20 08/16/20 cyanocobalamin (vitamin B-12) 1,000 mcg SUBLINGUAL DAILY 08/16/20 08/16/20 digoxin 125 mcg PO DAILY 08/16/20 08/16/20 ergocalciferol (vitamin D2) 1,250 mcg PO MO@0900 08/16/20 08/16/20 ezetimibe 10 mg PO DAILY 08/16/20 08/16/20 furosemide 60 mg PO DAILY 08/16/20 08/16/20 pantoprazole 40 mg PO DAILY 08/16/20 08/16/20 sertraline 50 mg PO DAILY 08/16/20 08/16/20 spironolactone 12.5 mg PO DAILY 08/16/20 08/16/20 zolpidem 10 mg PO BEDTIME PRN 08/16/20 08/16/20 Previous Rx's Medication Instructions Recorded atorvastatin 80 mg PO DAILY #1 tab 08/17/20 heparin(porcine) in 0.45% NaCl 25,000 unit CONTINUOUS IV INFUSION 08/17/20 .Q0M #6000 ml DS: Summary Hospital Course Hospital Course: History of presenting illness 50-year-old male with prior history of extensive cardiovascular interventions in the past starting in 2007 when he has his 1st myocardial infarction. He said he had 3 stents put in at that time. Subsequently 2011 he had repeat intervention and again in 2015 he had repeat intervention and was last intervention. He generally lives in [place] and was visiting family in [place]. Yesterday morning while he was sleeping he woke up at around 07:30 with severe retroster nal chest pressure/sharp discomfort. Symptoms were not subsiding. He had no nausea vomiting diaphoresis or dizziness. He present to emergency room. Eventually symptoms resolved subsequently with GI cocktail. Patient was noted to have rising high sensitivity troponin suggestive of myocardial injury EKG showed no acute ischemic changes patient was continued on home medication including statins aspirin beta-blockers and was placed on IV heparin, and admitted to intermediate care unit Past medical history Anxiety CKD (chronic kidney disease) Diabetes High cholesterol HTN (hypertension) Ischemic cardiomyopathy Obesity Obstructive sleep apnea Past surgical history AICD (automatic cardioverter/defibrillator) present Stented coronary artery Social history never smoked, no history of alcohol abuse or illicit drug use. Hospital course Non ST-elevation [place] patient remains chest pain-free since admission, tele monitor showed 1 short run of accelerated idioventricular rhythm, no other major arrhythmia is noted patient remains hemodynamically stable no evidence of overt congestive heart failure now being transferred to [facility] for cardiac catheterization to evaluate coronary anatomy, patient will be continued on IV heparin and all baseline home medications including high-intensity statins, aspirin, beta blockers, Entresto. Severe ischemic cardiomyopathy currently with no overt heart failure continue home medications including Coreg, Entresto and Aldactone as well as digoxin patient is status post AICD Obesity contributing to heart failure and coronary artery disease strongly recommend weight reduction. Time Spent with Patient Time attestation: Total time spent providing and/or coordinating discharge services: Discharge coordination time: Greater than 30 minutes Physical Exam Vital Signs: Vital Signs: Last Vital Signs Temp 98.5 F 08/17/20 11:10 Pulse 66 08/17/20 11:10 Resp 20 08/17/20 11:10 BP 106/67 08/17/20 11:10 Pulse Ox 97 08/17/20 11:10 Body Mass Index 39.2 General patient resting comfortably in no acute distress. Neck is supple no JVD. CVS regular rate rhythm Respiratory lungs clear to auscultation, no respiratory distress, no wheeze, no rhonchi. Gastrointestinal abdomen soft, nontender, bowel sounds audible, no guarding , no rigidity. Extremities no clubbing cyanosis or edema. Neuro nonfocal Psych good insight, no anxiety Skin no rash DS: Data Data Completed and Pending Labs on day of discharge: Laboratory Results - last 24 hr 08/16/20 08/16/20 08/16/20 13:10 13:10 14:56 WBC RBC Hgb Hct MCV MCH MCHC RDW Plt Count MPV Immature Gran % (Auto) Neut % (Auto) Lymph % (Auto) [place] % (Auto) Eos % (Auto) Baso % (Auto) Lymph # (Auto) [place] # (Auto) Eos # (Auto) Baso # (Auto) Abs Immat Gran (auto) Absolute Neuts (auto) Absolute Nucleated RBC Nucleated RBC % (auto) PT INR PTT (Heparin Protocol) Sodium Potassium Chloride Carbon Dioxide Anion Gap BUN Creatinine Estim Creat Clear Calc Estimated GFR POC Glucose Random Glucose Estimat Average Glucose Hemoglobin A1c % Calcium Troponin I High Sens 459.1 H D Triglycerides Cholesterol LDL Cholesterol, Calc HDL Cholesterol Urine Color YELLOW Urine Appearance CLEAR Urine pH 7.0 Ur Specific [place] 1.020 Urine Protein NEG Urine Glucose (UA) NEG Urine Ketones NEG Urine Blood TRACE Urine Nitrite NEG Ur Leukocyte Esterase NEG Urine RBC 1-4 Urine WBC 0 Ur Squamous Epith Cells NONE Urine Bacteria NONE Urine Opiates Screen Not Detected Ur Barbiturates Screen Not Detected Ur Phencyclidine Scrn Not Detected Ur Amphetamines Screen Not Detected U Benzodiazepines Scrn Not Detected Urine Cocaine Screen Not Detected U Marijuana (THC) Screen Not Detected 08/16/20 08/16/20 08/16/20 17:08 17:08 17:08 WBC 9.9 RBC 5.39 Hgb 15.3 Hct 47.7 MCV 88.5 MCH 28.4 MCHC 32.1 RDW 13.3 Plt Count 216 MPV 11.1 Immature Gran % (Auto) Neut % (Auto) Lymph % (Auto) [place] % (Auto) Eos % (Auto) Baso % (Auto) Lymph # (Auto) [place] # (Auto) Eos # (Auto) Baso # (Auto) Abs Immat Gran (auto) Absolute Neuts (auto) Absolute Nucleated RBC 0.000 Nucleated RBC % (auto) 0.0 PT 13.6 H INR 1.1 PTT (Heparin Protocol) 144.5 H* Sodium Potassium Chloride Carbon Dioxide Anion Gap BUN Creatinine Estim Creat Clear Calc Estimated GFR POC Glucose Random Glucose Estimat Average Glucose Hemoglobin A1c % Calcium Troponin I High Sens 786.5 H D Triglycerides Cholesterol LDL Cholesterol, Calc HDL Cholesterol Urine Color Urine Appearance Urine pH Ur Specific [place] Urine Protein Urine Glucose (UA) Urine Ketones Urine Blood Urine Nitrite Ur Leukocyte Esterase Urine RBC Urine WBC Ur Squamous Epith Cells Urine Bacteria Urine Opiates Screen Ur Barbiturates Screen Ur Phencyclidine Scrn Ur Amphetamines Screen U Benzodiazepines Scrn Urine Cocaine Screen U Marijuana (THC) Screen 08/16/20 08/16/20 08/17/20 21:03 22:47 05:30 WBC 9.4 RBC 5.25 Hgb 15.0 Hct 47.4 MCV 90.3 MCH 28.6 MCHC 31.6 RDW 13.4 Plt Count 203 MPV 11.3 Immature Gran % (Auto) 0.4 Neut % (Auto) 68.8 Lymph % (Auto) 22.4 [place] % (Auto) 7.6 Eos % (Auto) 0.5 Baso % (Auto) 0.3 Lymph # (Auto) 2.1 [place] # (Auto) 0.7 Eos # (Auto) 0.1 Baso # (Auto) 0.0 Abs Immat Gran (auto) 0.04 H Absolute Neuts (auto) 6.5 Absolute Nucleated RBC 0.000 Nucleated RBC % (auto) 0.0 PT INR PTT (Heparin Protocol) 98.6 H D Sodium Potassium Chloride Carbon Dioxide Anion Gap BUN Creatinine Estim Creat Clear Calc Estimated GFR POC Glucose 140 H Random Glucose Estimat Average Glucose Hemoglobin A1c % Calcium Troponin I High Sens Triglycerides Cholesterol LDL Cholesterol, Calc HDL Cholesterol Urine Color Urine Appearance Urine pH Ur Specific [place] Urine Protein Urine Glucose (UA) Urine Ketones Urine Blood Urine Nitrite Ur Leukocyte Esterase Urine RBC Urine WBC Ur Squamous Epith Cells Urine Bacteria Urine Opiates Screen Ur Barbiturates Screen Ur Phencyclidine Scrn Ur Amphetamines Screen U Benzodiazepines Scrn Urine Cocaine Screen U Marijuana (THC) Screen 08/17/20 08/17/20 08/17/20 05:30 05:30 05:30 WBC RBC Hgb Hct MCV MCH MCHC RDW Plt Count MPV Immature Gran % (Auto) Neut % (Auto) Lymph % (Auto) [place] % (Auto) Eos % (Auto) Baso % (Auto) Lymph # (Auto) [place] # (Auto) Eos # (Auto) Baso # (Auto) Abs Immat Gran (auto) Absolute Neuts (auto) Absolute Nucleated RBC Nucleated RBC % (auto) PT INR PTT (Heparin Protocol) 79.8 H Sodium 140 Potassium 4.7 Chloride 105 Carbon Dioxide 28 Anion Gap 12 BUN 16 Creatinine 1.40 Estim Creat Clear Calc 80.1 Estimated GFR 54 POC Glucose Random Glucose 120 H Estimat Average Glucose 143 Hemoglobin A1c % 6.6 Calcium 9.3 Troponin I High Sens Triglycerides 149 Cholesterol 158 LDL Cholesterol, Calc 101 HDL Cholesterol 28 Urine Color Urine Appearance Urine pH Ur Specific [place] Urine Protein Urine Glucose (UA) Urine Ketones Urine Blood Urine Nitrite Ur Leukocyte Esterase Urine RBC Urine WBC Ur Squamous Epith Cells Urine Bacteria Urine Opiates Screen Ur Barbiturates Screen Ur Phencyclidine Scrn Ur Amphetamines Screen U Benzodiazepines Scrn Urine Cocaine Screen U Marijuana (THC) Screen 08/17/20 08/17/20 07:34 11:08 WBC RBC Hgb Hct MCV MCH MCHC RDW Plt Count MPV Immature Gran % (Auto) Neut % (Auto) Lymph % (Auto) [place] % (Auto) Eos % (Auto) Baso % (Auto) Lymph # (Auto) [place] # (Auto) Eos # (Auto) Baso # (Auto) Abs Immat Gran (auto) Absolute Neuts (auto) Absolute Nucleated RBC Nucleated RBC % (auto) PT INR PTT (Heparin Protocol) Sodium Potassium Chloride Carbon Dioxide Anion Gap BUN Creatinine Estim Creat Clear Calc Estimated GFR POC Glucose 106 130 H Random Glucose Estimat Average Glucose Hemoglobin A1c % Calcium Troponin I High Sens Triglycerides Cholesterol LDL Cholesterol, Calc HDL Cholesterol Urine Color Urine Appearance Urine pH Ur Specific [place] Urine Protein Urine Glucose (UA) Urine Ketones Urine Blood Urine Nitrite Ur Leukocyte Esterase Urine RBC Urine WBC Ur Squamous Epith Cells Urine Bacteria Urine Opiates Screen Ur Barbiturates Screen Ur Phencyclidine Scrn Ur Amphetamines Screen U Benzodiazepines Scrn Urine Cocaine Screen U Marijuana (THC) Screen Discharge Plan Discharge Patient Disposition: Xfer Acute Care Hospital Referrals: Physician,None [Primary Care Provider] - Discharge Medications: New atorvastatin 80 mg Tablet 80 mg PO DAILY Qty: 1 RF: 0 heparin(porcine) in 0.45% NaCl 25,000 unit/250 mL Parenteral Solution 25,000 unit continuous IV infusion .Q0M Qty: 6000 RF: 0 Continued furosemide 40 mg tablet 60 mg PO DAILY RF: 0 carvedilol 25 mg tablet 25 mg PO BID RF: 0 spironolactone 25 mg tablet 12.5 mg PO DAILY RF: 0 pantoprazole 40 mg tablet,delayed release (DR/EC) 40 mg PO DAILY RF: 0 digoxin 125 mcg (0.125 mg) tablet 125 mcg PO DAILY RF: 0 zolpidem 10 mg tablet 10 mg PO BEDTIME PRN (Reason: Insomnia) RF: 0 sertraline 50 mg tablet 50 mg PO DAILY RF: 0 buspirone 15 mg tablet 15 mg PO BID RF: 0 ezetimibe 10 mg tablet 10 mg PO DAILY RF: 0 Entresto 97-103 mg tablet 1 tab PO BID RF: 0 aspirin 81 mg Tablet,Delayed Release (Dr/Ec) 81 mg PO DAILY RF: 0 cyanocobalamin (vitamin B-12) 1,000 mcg Tablet, Sublingual 1,000 mcg SUBLINGUAL DAILY RF: 0 ergocalciferol (vitamin D2) 1,250 mcg (50,000 unit) Capsule 1,250 mcg PO MO@0900 RF: 0 Discontinued rosuvastatin 40 mg tablet 40 mg PO DAILY RF: 0 Discharge Orders: Discharge Order (Routine); Ordered 08/17/20 Ordered By: Lakisha Paredes Diet: low fat, low cholesterol and low salt diet Activity on Discharge: Bedrest Stand Alone Forms: Patient Portal Discharge page Care Plan Goals: Coronary artery disease history of severe ischemic cardiomyopathy status post AICD Health Concerns: Acute coronary syndrome, transferred to [facility] for cardiac catheterization, continue IV heparin all home medication, placed on by mouth Lipitor at home was on rosuvastatin Plan of Treatment: Close outpatient follow-up with primary care physician and Cardiology
--- NOTE | 2020-08-17 13:07 | MHC.CM.PN ---
IMM 08/17/20 mALE 50 LIVES WITH . He uses a walker. 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 DC was home no services. [place] [facility] [place] to be provided via [facility].
[2020-08-17] MEDS: Heparin Sodium,Porcine/1/2NS 25,000 UNIT/250 ML IV.SOLN 10.25 UNIT IVCONT (13:19)
[2020-08-17 14:11] LABS: PTT Heparin Drip 58.1 SEC (53-77.9)
--- NOTE | 2020-08-17 18:31 | CA_ITS ---
Transthoracic Echocardiogram Patient (Last, First, Middle): Karel Edmonds, Gender: Male Date of : 1970 Age: 50 Procedure Date: 08/17/2020 Procedure Type: Transthoracic Echocardiogram Location: [facility] [place] Height: 172.72 cm Weight: 116.58 kg BSA: 2.27 m2 Heart Rate: bpm BP: 112 / 75 mmHg Field Broomer: PETE Referring MD: Kindra Heredia NP Manager Visual: Charles Denise MD Symptoms: NSTEMI Study Quality: Technically Difficult/contrast ECG Rhythm: Sinus Conclusions: - 1. Technically very limited study due to body habitus despite using contrast 2. Severely dilated left ventricle with severe LV systolic dysfunction with LVEF of 20-25% with large LAD territory wall motion abnormality 3. Normal cardiac valvular Doppler 4. No gross pericardial effusion Findings Procedure Information The patient receives contrast. Left Ventricle Severely increased left ventricular cavity size. There is normal left ventricular wall thickness. The left ventricular systolic function is severely decreased. The visually estimated ejection fraction is between 20 25%. Spectral Doppler is indicative of an impaired relaxation filling pattern. E/E prime ratio is between 8 and 15 consistent with indeterminate filling pressures. Wall Motion Rest Echo Findings The basal inferoseptal and mid anterolateral segments are hypokinetic. The anteroseptal wall, the apical anterior, apical inferior, apical lateral, and mid inferoseptal segments are akinetic. The apex segment is dyskinetic. The basal anterior and mid anterior segments are not visualized. All other scored wall segments showed normal motion. Right Ventricle The right ventricle was not well visualized. There is an ICD wire seen in the right ventricle. Atria The left atrium is likely dilated. Interatrial shunt cannot be excluded. The right atrium was not well visualized. Aortic Valve The aortic valve structure and function is likely normal. There is no aortic valve stenosis. There is no aortic valve regurgitation. Mitral Valve There is mild anterior and posterior mitral leaflet thickening. There is trace mitral valve regurgitation. There is no mitral valve stenosis. There is moderate mitral annular dilatation. Pulmonic Valve The pulmonic valve was not well visualized. Tricuspid Valve The tricuspid valve was not well visualized. Tricuspid regurgitation envelope is inadequate for calculation of right ventricular systolic pressure. Great Vessels The aorta was not well visualized. The pulmonary artery was not well visualized. Venous The inferior vena cava was not well visualized. Pericardium/Pleural The pericardium was not well visualized. Prior Study Comparison No prior study available for comparison. Measurements 2D Linear Measurements IVSd: 1.08 0.6-0.9/0.6-1.0 cm LVIDd: 6.67 3.9-5.3/4.2-5.9 cm LVIDd Index: 2.94 2.4-3.2/2.2-3.1 cm/m2 LVIDs: 5.42 2.0-3.6 cm LVPWd: 1.11 0.7-1.1 cm Ao Root: 3.50 2.1-3.5 cm LA Diam: 3.70 2.7-3.8/3.0-4.0 cm LAIDs Index: 1.63 1.5-2.3 cm/m2 LV Mass: 414.72 67-162/88-224 g LV Mass Index: 182.69 43-95/49-115 g/m2 LVOT Diam: 2.10 3.0+(-)1.3 cm 2D Systolic Function EF 4C: 29.20 >55% EF 2C: 32.80 >55% Mitral Valve MV Pk E: 0.54 MV PK A: 0.69 MV Decel Time: 246.00 E/A: 0.80 E'Lateral: 5.51 E'Medial: 3.77 E/E' Med: 14.30 E/E' Lat: 9.80 PHT: 72.00 MVA PHT: 3.06 Decel [place]: 2.18 Aortic Valve AoV Pk David: 1.22 AoV Mn David: 0.87 AoV VTI: 0.22 AoV Pk Grad: 6.00 Aov Mn Grad: 3.00 CELESTINA Cont.VTI: 1.91 LVOT LVOT Pk David: 0.63 LVOT Mn David: 0.41 LVOT VTI: 0.12 LVOT Pk Grad: 2.00 LVOT Mn Grad: 1.00 LVOT Diam: 2.10 LVOT Area: 3.46 Diastolic Function MV Pk E: 0.54 MV Pk A: 0.69 E/A: 0.80 E'Medial: 3.77 E/E' Med: 14.30 E' Laterial: 5.51 E/E' Lat: 9.80 Great Vessels Aorta Ao Root-2D: 3.50 2.0-3.7 cm Ao Asc: 3.30 2.1-3.4 cm Updated in Other Vendor System with Status of Final Charles Denise MD electronically signed on 08/17/2020 3:46:44 PM with status of Final
== END 2020-08-17 16:20 | disposition short-term general hospital (02) | DRG 281 ==
LOC: HO.ED 17:47 → HO.EDOVER 18:42 → HO.IMC 19:03
PROVIDERS: Hospitalist; Nurse Practitioner Acute Care; Nurse Practitioner Primary Care; Admitting Provider Hospitalist; Emergency Provider Emergency Medicine; Visit Provider Hospitalist
DX: I21.4 Non-ST elevation (NSTEMI) myocardial infarction (principal); Z68.41 Body mass index [BMI] 40.0-44.9, adult; I12.9 Hypertensive chronic kidney disease with stage 1 through stage 4 chronic kidney disease, or unspecified chronic kidney disease; I25.5 Ischemic cardiomyopathy; E66.9 Obesity, unspecified; E11.22 Type 2 diabetes mellitus with diabetic chronic kidney disease; N18.30 Chronic kidney disease, stage 3 unspecified; Z99.89 Dependence on other enabling machines and devices; Z20.822 Contact with and (suspected) exposure to COVID-19; Z95.810 Presence of automatic (implantable) cardiac defibrillator; Z88.5 Allergy status to narcotic agent; Z79.82 Long term (current) use of aspirin; Z79.899 Other long term (current) drug therapy
CPT/HCPCS: 36415; 71045; 80048; 80053; 80061; 80307; 81001; 82947; 83036; 83880; 84484; 85025; 85027; 85379; 85610; 85730; 87635; 93005; 93306; 94660; 96374; 99285; Q9957

== ENCOUNTER 2021-09-04 11:04 | Emergency (ER) | payer MEDICARE, MEDICAID, SELFPAY ==
--- NOTE | ~2021-09-04 | US_ITS ---
EXAMINATION: US ABDOMEN LIMITED CLINICAL INFORMATION: Elevated LFTs with question of gallbladder. COMPARISON: None TECHNIQUE: Real-time imaging of the gallbladder was performed. FINDINGS: GALLBLADDER: The gallbladder is physiologically distended without evidence of stones, sludge, polyps, wall thickening or pericholecystic fluid. The gallbladder wall is 2 mm in thickness. COMMON BILE DUCT: Normal in caliber measuring 0 point cm in diameter. US/US abdomen limited IMPRESSION: Normal-appearing gallbladder and common bile duct.
--- NOTE | ~2021-09-04 | CT_ITS ---
EXAMINATION: CT ABDOMEN AND PELVIS WITH CONTRAST CLINICAL INFORMATION: Epigastric pain COMPARISON: Chest x-ray 08/16/2020 TECHNIQUE: Multidetector volumetric images were obtained from the superior aspect of the liver through the pubic symphysis following administration 85 mL of Omnipaque 350 intravenous contrast. Sagittal and coronal reformatted images were obtained on the technologist's workstation. Oral contrast: No This CT examination was performed using dose optimization techniques as appropriate, variously including the following: *Automated exposure control *Adjustment of mA and/or kV according to patient size (this includes techniques or standardized protocols for targeted exams where dose is matched to indication/reason for exam; i.e. extremities or head) *Use of iterative reconstruction technique DLP: 634 mGy-cm FINDINGS: LUNG BASES: Partially imaged pacer wires. No focal consolidation or mass. LIVER, GALLBLADDER, AND BILIARY TREE: The liver is normal in size, shape, and attenuation. No focal hepatic lesion or biliary ductal dilatation is present. The gallbladder is unremarkable with no evidence of radiopaque gallstones, gallbladder wall thickening, or obvious pericholecystic inflammatory changes. PANCREAS: Unremarkable. SPLEEN: Unremarkable. ADRENAL GLANDS: Unremarkable. KIDNEYS AND URETERS: There are a few areas of right renal cortical thinning, possibly areas of scarring. Simple right renal cyst requiring no imaging follow-up are seen. No solid mass, calculi, or hydronephrosis. BLADDER: Unremarkable. GASTROINTESTINAL TRACT: The small and large bowel are unremarkable. The appendix is unremarkable. ABDOMINAL WALL: No significant hernia is appreciated. LYMPH NODES: Normal. VASCULAR: Unremarkable. PELVIC VISCERA: The prostate and seminal vesicles are unremarkable. OSSEOUS STRUCTURES: Unremarkable. CT/CT abdomen pelvis w con IMPRESSION: No acute CT finding to explain abdominal pain. Fleischner guidelines were followed.
[2021-09-04 12:21] VITALS: BP 105/53; PULSE 70; RESP 16; TEMP 36.6; O2SAT 96; BMI 30.6
[2021-09-04 13:06] LABS: Basophils Percent Auto 0.1 % (0-2); Hematocrit 49.2 % (42.0-52.0); Hemoglobin 15.9 g/dl (14.0-18.0); Imm Gran Abs Auto 0.04 X10*3/uL (0.00-0.03); Imm Gran Pct Auto 0.4 % (0.0-0.4); Lymphocytes Absolute Auto 0.3 X10*3/uL (1.2-4.9); Lymphocytes Percent Auto 3.5 % (20-40); MANUAL DIFF FLAG SCAN; Mean Corpuscular HGB Conc 32.3 g/dl (31.0-36.0); Mean Corpuscular Hemoglobin 28.2 pg (27.0-33.0); Mean Corpuscular Volume 87.2 fL (80.0-98.0); Mean Platelet Volume 11.1 fL (9.4-12.4); Monocytes Absolute Auto 0.5 X10*3/uL (0.1-1.2); Monocytes Percent Auto 5.5 % (2-11); Neutrophils Absolute Auto 8.2 x10*3/uL (2.0-8.3); Neutrophils Percent Auto 90.5 % (45-73); Platelet Count 185 X10*3/uL (160-400); Red Blood Count 5.64 X10*6/uL (4.60-5.80); Red Cell Distribution Width 14.6 % (11.0-16.0); SCAN SMEAR FLAG 1; White Blood Count 9.1 X10*3/uL (4.8-10.8)
[2021-09-04 13:23] LABS: Alanine Aminotransferase 21 U/L (0-40); Albumin Level 4.3 g/dL (3.5-5.0); Alkaline Phosphatase 59 U/L (39-117); Anion Gap 12 (12-20); Aspartate Amino Transferase 20 U/L (5-37); Bilirubin Direct 0.6 mg/dL (0.0-0.5); Bilirubin Total 3.1 mg/dL (0.0-1.0); Blood Urea Nitrogen 20 mg/dL (9-16); Calcium 9.9 mg/dL (8.4-10.2); Carbon Dioxide 25 mmol/L (22-29); Chloride 106 mmol/L (96-108); Creatinine Clr Calc Pharmacy 77.8; Estimated Glomerular Filt Rate > 60; Glucose Random 108 mg/dL (60-115); Lipase 13 U/L (8-78); Potassium 4.5 mmol/L (3.3-5.1); Sodium 138 mmol/L (135-145)
[2021-09-04 13:26] LABS: SLIDE REVIEW VERIFIED
--- NOTE | 2021-09-04 16:29 | ECG_ITS ---
Test Reason : ABDOMINAL PAIN Blood Pressure : / mmHG Vent. Rate : 071 BPM Atrial Rate : 071 BPM P-R Int : 190 ms QRS Dur : 146 ms QT Int : 396 ms P-R-T Axes : 028 190 034 degrees QTc Int : 430 ms Normal sinus rhythm Right bundle branch block Cannot rule out Inferior infarct , age undetermined Anteroseptal infarct (cited on or before 16-AUG-2020) Abnormal ECG When compared with ECG of 16-AUG-2020 15:47, Right bundle branch block is now Present Questionable change in initial forces of Anterior leads Referred By: La Lazaro Electronically Signed By:MELISSA MARSHALL MD
--- NOTE | 2021-09-04 16:45 | ED.ABDPAIN ---
HPI - Abdominal Pain General Chief Complaint: Abdominal Pain Stated Complaint: Vomiting/Diarrhea/Abd pain Time Seen by Provider: 09/04/21 15:27 Source: patient Mode of arrival: ambulatory Limitations: no limitations History of Present Illness HPI narrative: Patient comes to the emergency room complaining of nausea, vomiting, diarrhea and epigastric pain since midnight, 16 hours ago. Patient denies fever chills. Patient states that he has vomited over 10 times, same with diarrhea. Patient tried taking Pepto-Bismol but he vomited immediately. Patient states that his whole family has similar symptoms with nausea vomiting and diarrhea. He has only 1 having epigastric pain. Related Data Home Medications Medication Instructions Recorded Confirmed aspirin 81 mg tablet,delayed 81 mg PO DAILY 08/16/20 08/16/20 release buspirone 15 mg tablet 15 mg PO BID 08/16/20 08/16/20 carvedilol 25 mg tablet 25 mg PO BID 08/16/20 08/16/20 cyanocobalamin (vitamin B-12) 1,000 mcg SUBLINGUAL DAILY 08/16/20 08/16/20 1,000 mcg sublingual tablet digoxin 125 mcg (0.125 mg) tablet 125 mcg PO DAILY 08/16/20 08/16/20 ergocalciferol (vitamin D2) 1,250 1,250 mcg PO MO@0900 08/16/20 08/16/20 mcg (50,000 unit) capsule ezetimibe 10 mg tablet 10 mg PO DAILY 08/16/20 08/16/20 furosemide 40 mg tablet 60 mg PO DAILY 08/16/20 08/16/20 pantoprazole 40 mg tablet,delayed 40 mg PO DAILY 08/16/20 08/16/20 release sacubitril 97 mg-valsartan 103 mg 1 tab PO BID 08/16/20 08/16/20 tablet (Entresto) sertraline 50 mg tablet 50 mg PO DAILY 08/16/20 08/16/20 spironolactone 25 mg tablet 12.5 mg PO DAILY 08/16/20 08/16/20 zolpidem 10 mg tablet 10 mg PO BEDTIME PRN 08/16/20 08/16/20 Previous Rx's Medication Instructions Recorded atorvastatin 80 mg tablet 80 mg PO DAILY #1 tab 08/17/20 heparin (porcine) 25,000 unit/250 25,000 unit (250 mL) CONTINUOUS IV 08/17/20 mL in 0.45 % sodium chloride IV INFUSION .Q0M #6000 ml soln Allergies Allergy/AdvReac Type Severity Reaction Status Date / Time hydromorphone [From DILAUDID] Allergy Mild PASSES OUT Verified 09/04/21 12:28 morphine [MORPHINE] Allergy Mild PASSES OUT Verified 09/04/21 12:28 Review of Systems Review of Systems Constitutional : No Weight loss, No Fever, No Chills, No Night Sweats, No Fatigue, No Malaise ENT/Mouth : No Hearing loss, No Ear Pain, No Nasal Congestion, No Sinus Pain, No Hoarseness, No sore throat, No Rhinorrhea, No Swallowing Difficulty Eyes: No Eye Pain, No Swelling, No Redness, No Foreign Body, No Discharge, No Vision Changes Cardiovascular : No Chest Pain, No SOB, No Dyspnea on Exertion, No Orthopnea, No Edema, No Palpitations Respiratory : No Cough, No Sputum, No Wheezing, No Smoke Exposure, No Dyspnea Gastrointestinal : Complaining of nausea vomiting and diarrhea. No Constipation, complaining of epigastric nonradiating Pain, No Hematochezia, No Melena Genitourinary : no irregular bleeding, No Dysuria, No Urinary Frequency, No Hematuria, No Urinary Incontinence, No Urgency, No Flank Pain, No Urinary Flow Changes, No Hesitancy Musculoskeletal : No joint pain, No Myalgias, No Joint Swelling Skin : No Skin Lesions, No rash Neuro : No Weakness, No Numbness, No Paresthesias, No Loss of Consciousness, No Dizziness, No Headache Psych : No Anxiety/Panic, No Depression, No SI/HI/AH/VH, No Social Issues, Heme/Lymph: No Bruising, No Bleeding,No Lymphadenopathy Endocrine : No Polyuria, No Polydipsia, No Temperature Intolerance [facility], [facility] Past Medical History Medical History Anxiety CKD (chronic kidney disease) Diabetes High cholesterol HTN (hypertension) Ischemic cardiomyopathy Obesity Obstructive sleep apnea Surgical History AICD (automatic cardioverter/defibrillator) present Stented coronary artery Social History Social History Household Members: Spouse Housing: Apartment Alcohol intake: never Advance Directives: No Advance Directives Information Provided: No service: No Current occupational status: disabled Physical Exam ED Vital Signs: Vital Signs - 24 hr 09/04/21 12:21 Temperature 98 F Pulse Rate 70 Respiratory Rate 16 Blood Pressure 105/53 L Pulse Oximetry 96 BMI result Body Mass Index 30.6 Const Other: Appearance: Alert. Oriented X3. No acute distress. Well-appearing Eyes: Pupils equal, round and reactive to light. ENT: Pharynx normal. Neck: Normal inspection. Neck supple. No lymph nodes noted. No crepitus CVS: Normal heart rate and rhythm. Pulses normal. Normal S1 and S2 Respiratory: No respiratory distress. Breath sounds normal. No Wheezing. No rales Abdomen: Soft , mildly tender to palpation in epigastric area. No rigidity. No distention. Negative Rodriguez sign Skin: Skin warm and dry. Normal skin color. Normal skin turgor. Extremities: No lower extremity edema. No Lacerations. No Rash Neuro: Oriented X 3. No motor deficit. No sensory deficit. Moving all extremities. No slurred speech. CN 2 through 12 grossly intact Psych: calm, cooperative, normal affect Course Course Course Narrative: Patient is getting IV fluids, Zofran, labs and CT scan pending. US pending, patient had negative Rodriguez sign Anticipating discharge home. Sign-out given to Dr. Greco [facility] - Abdominal Pain Lab Data Result diagrams: 09/04/21 13:01 09/04/21 13:01 Labs: Lab Results 09/04/21 09/04/21 09/04/21 Range/Units 13:01 13:01 13:01 WBC 9.1 (4.8-10.8) X10*3/uL RBC 5.64 (4.60-5.80) X10*6/uL Hgb 15.9 (14.0-18.0) g/dl Hct 49.2 (42.0-52.0) % MCV 87.2 (80.0-98.0) fL MCH 28.2 (27.0-33.0) pg MCHC 32.3 (31.0-36.0) g/dl RDW 14.6 (11.0-16.0) % Plt Count 185 (160-400) X10*3/uL MPV 11.1 (9.4-12.4) fL Immature Gran % (Auto) 0.4 (0.0-0.4) % Neut % (Auto) 90.5 H (45-73) % Lymph % (Auto) 3.5 L (20-40) % [place] % (Auto) 5.5 (2-11) % Eos % (Auto) 0.0 (0-4) % Baso % (Auto) 0.1 (0-2) % Lymph # (Auto) 0.3 L (1.2-4.9) X10*3/uL [place] # (Auto) 0.5 (0.1-1.2) X10*3/uL Eos # (Auto) 0.0 (0.0-0.4) X10*3/uL Baso # (Auto) 0.0 (0.0-0.2) X10*3/uL Abs Immat Gran (auto) 0.04 H (0.00-0.03) X10*3/uL Absolute Neuts (auto) 8.2 (2.0-8.3) x10*3/uL Absolute Nucleated RBC 0.000 (0.0-0.012) X10*3/uL Nucleated RBC % (auto) 0.0 (0.0-0.2) /100WBC Smear Tech's Comments VERIFIED Sodium 138 (135-145) mmol/L Potassium 4.5 (3.3-5.1) mmol/L Chloride 106 (96-108) mmol/L Carbon Dioxide 25 (22-29) mmol/L Anion Gap 12 (12-20) BUN 20 H (9-16) mg/dL Creatinine 1.26 (0.5-1.4) mg/dL Estim Creat Clear Calc 77.8 Estimated GFR > 60 Random Glucose 108 (60-115) mg/dL Calcium 9.9 D (8.4-10.2) mg/dL Total Bilirubin 3.1 H (0.0-1.0) mg/dL Direct Bilirubin 0.6 H (0.0-0.5) mg/dL AST 20 (5-37) U/L ALT 21 (0-40) U/L Alkaline Phosphatase 59 D (39-117) U/L Troponin I High Sens 9.4 (<3.5-35.0) ng/L Total Protein 8.0 (6.5-8.0) g/dL Albumin 4.3 (3.5-5.0) g/dL Lipase 13 (8-78) U/L Discharge Plan Discharge Clinical Impression: Abdominal pain Patient Disposition: Still a Patient Prescriptions: No Action furosemide 40 mg tablet 60 mg PO DAILY 0RF carvedilol 25 mg tablet 25 mg PO BID 0RF spironolactone 25 mg tablet 12.5 mg PO DAILY 0RF pantoprazole 40 mg tablet,delayed release (DR/EC) 40 mg PO DAILY 0RF digoxin 125 mcg (0.125 mg) tablet 125 mcg PO DAILY 0RF zolpidem 10 mg tablet 10 mg PO BEDTIME PRN (Reason: Insomnia) 0RF sertraline 50 mg tablet 50 mg PO DAILY 0RF buspirone 15 mg tablet 15 mg PO BID 0RF ezetimibe 10 mg tablet 10 mg PO DAILY 0RF Entresto 97-103 mg tablet 1 tab PO BID 0RF aspirin 81 mg Tablet,Delayed Release (Dr/Ec) 81 mg PO DAILY 0RF cyanocobalamin (vitamin B-12) 1,000 mcg Tablet, Sublingual 1,000 mcg SUBLINGUAL DAILY 0RF ergocalciferol (vitamin D2) 1,250 mcg (50,000 unit) Capsule 1,250 mcg PO MO@0900 0RF atorvastatin 80 mg Tablet 80 mg PO DAILY Qty: 1 0RF heparin(porcine) in 0.45% NaCl 25,000 unit/250 mL Parenteral Solution 25,000 unit continuous IV infusion .Q0M Qty: 6000 0RF
[2021-09-04] MEDS: 0.9 % Sodium Chloride 1,000 ML 999 ML IVCONT (16:53)
[2021-09-04] MEDS: ondansetron HCL 4 MG/2 ML VIAL IVPUSH (16:53)
[2021-09-04 16:58] LABS: Troponin-I High Sensitivity 9.4 ng/L (<3.5-35.0)
[2021-09-04] MEDS: iohexoL 350 MG/ML 100 ML INFUS..BTL IV (17:18)
== END 2021-09-04 22:48 | disposition home or self-care (01) ==
PROVIDERS: Emergency Medicine; Emergency Provider Emergency Medicine Emergency Medical Services
DX: A08.4 Viral intestinal infection, unspecified (principal); R10.13 Epigastric pain; E11.22 Type 2 diabetes mellitus with diabetic chronic kidney disease; I12.9 Hypertensive chronic kidney disease with stage 1 through stage 4 chronic kidney disease, or unspecified chronic kidney disease; N18.9 Chronic kidney disease, unspecified
CPT/HCPCS: 36415; 74177; 76705; 80048; 80076; 83690; 84484; 85025; 93005; 96361; 96374; 99284; J2405; Q9967